=== PATIENT | female | born 1970 | race African-American/Black ===

== ENCOUNTER 2017-09-15 14:22 | Inpatient (IN) | payer OTHER ==
[2017-09-15] MEDS ORDERED: Acetaminophen 325 MG TAB PO PRN (15:56)
[2017-09-15] MEDS ORDERED: Guaifenesin DM 100-10/5 ML UDCUP PO PRN (15:56)
[2017-09-15] MEDS ORDERED: Ondansetron HCl/PF 4 MG/2 ML Vial IVP PRN (15:56)
[2017-09-15 16:27] LABS: CKMB 2.2 ng/mL (0-6.6); Troponin I 0.016 ng/mL (< 0.028)
[2017-09-15] MEDS ORDERED: Warfarin Sodium 5 MG TAB PO SCH (17:00)
--- NOTE | 2017-09-15 17:05 | HP ---
PRIMARY CARE PHYSICIAN: Dr. Beaulieu in [place]. REASON FOR ADMISSION: Atrial fibrillation with rapid ventricular response, acute on chronic congestive heart failure exacerbation, possible acute cholecystitis. HISTORY OF PRESENT ILLNESS: The patient gives history of nausea and vomiting from this morning. She went to [place] [facility] where a CT of the abdomen and pelvis was done along with urinalysis. Both the above tests revealed pleural and pericardial effusion with possible congestive heart failure exacerbation with elevated BNP and urinary tract infection. She also mentions that she has loss of appetite from last 3 weeks. She thinks she might have gallbladder issue. The patient initially thought this was constipation or GERD and tried taking multiple medications including Mylanta and antacids with no relief. She also has shortness of breath on minimal exertion while ambulating inside the house from last 3 weeks. No fever. No complaints of cough or expectoration. PAST MEDICAL/SURGICAL HISTORY: History of mitral valve replacement done in 1985 in [place], prior history of chronic atrial fibrillation, hypertension, hernia repair, tubal ligation, and hysterectomy. CURRENT MEDICATIONS: Please note, the patient does not recall all of her medications. She takes Coumadin 10 mg on all days except Friday and when she takes 5 mg daily, aspirin 81 mg daily, unknown blood pressure pill which she takes twice daily. ALLERGIES: MORPHINE and PENICILLIN. PERSONAL HISTORY: Does not abuse alcohol or drugs. No history of smoking. She lives with her fiance. FAMILY HISTORY: Mother of colon cancer when she was 49 years of age. Father had massive AL when he was 50. The patient has two girls. There are more than 20 years old. CODE STATUS: FULL. Power of disability attorney is either her fiance Mr. Taylor or her aunt Ms. Herrera. REVIEW OF SYSTEMS: The following complete review of systems was negative, unless otherwise mentioned in the HPI or below: Constitutional: Weight loss or gain, ability to conduct usual activities. Skin: Rash, itching. Eyes: Double vision, pain. ENT/Mouth: Nose bleeding, neck stiffness, pain, tenderness. Cardiovascular: Palpitations, dyspnea on exertion, orthopnea. Respiratory: Shortness of breath, wheezing, cough, hemoptysis, fever or night sweats. Gastrointestinal: Poor appetite, abdominal pain, heartburn, nausea, vomiting, constipation, or diarrhea. Genitourinary: Urgency, frequency, dysuria, nocturia. Musculoskeletal: Pain, swelling. Neurologic/Psychiatric: Anxiety, depression. Allergy/Immunologic: Skin rash, bleeding tendency. PHYSICAL EXAMINATION: GENERAL: The patient is a 46-year-old female, who is currently not in any acute distress. VITAL SIGNS: Blood pressure 120/104, pulse 110 per minute, respiratory rate 18 per minute, temperature 97.1 degrees Fahrenheit, saturating 97% on room air. NECK: Supple, no elevated JVD. HEENT: Eyes: Extraocular muscles intact. Pupils reacting to light. Oral cavity, mucous membranes are moist. No exudates or congestion. CARDIOVASCULAR: S1, S2 heard. Irregular rhythm. RESPIRATORY: Air entry 1+ bilateral. Scattered rales in the infrascapular area. ABDOMEN: Soft, bowel sounds heard. No tenderness, rigidity or guarding. EXTREMITIES: No peripheral edema or calf tenderness. VASCULAR SYSTEM: Peripheral pulses 1+ bilateral. No ischemic ulcerations or gangrene. CENTRAL NERVOUS SYSTEM: No gross focal deficits seen. The patient is alert, awake, and oriented well. PSYCHIATRIC: The patient's mood is euthymic. No hallucinations or delusions. LABORATORY AND X-RAY FINDINGS: EKG done shows atrial fibrillation with 107 beats per minute. There is nonspecific ST-T wave changes. CT of the abdomen and pelvis done at [place] [facility] shows bilateral pleural effusion and pericardial effusion. Prior echo done in 10/2016, showed an EF of 50%-55% with normal functioning prosthetic mitral valve. There is small pericardial effusion. White count of 7, H&H 11 and 38, platelet count 287 with 60% neutrophils. PT/ INR, PTT 18, 1.5, and 46. Serum bicarbonate 20, BUN 17, creatinine 0.8, glucose is 116. Total bilirubin 2.4. Liver enzymes are within normal limits. Albumin is 3.7. BNP 805. Lipase is 10. UA shows large leukoesterase with 7- 10 wbc's and 1+ bacteria. CLINICAL IMPRESSION AND PLAN: The patient will be admitted to telemetry for acute on chronic congestive heart failure exacerbation likely diastolic. She also has intractable nausea and vomiting from last 3 weeks, most likely from CHF with exertional shortness of breath. She has no right upper quadrant tenderness, but the patient thinks it could be gallbladder and in view of this, we will obtain ultrasound of the right upper quadrant. She will be on Lasix 40 mg IV q.[address] her on a small dose of Toprol 12.5 mg daily and continue her Coumadin at 5 mg daily. We will obtain echo with 2D Doppler for current ejection fraction. The plan is to gently diurese her to clear her severe orthopnea that she has at present. NEVAEHD
--- NOTE | 2017-09-15 17:45 | ULT ---
RIGHT UPPER QUADRANT SONOGRAM: HISTORY: Right upper quadrant pain. FINDINGS: The gallbladder is incompletely distended. A nonshadowing sludge ball is apparent within the gallbla dder lumen. There is no pericholecystic fluid or gallbladder wall thickening. The common duct is 0. 5 cm. The liver is heterogeneous without focal mass or intrahepatic biliary dilatation. No free flu id. Right pleural fluid is noted. IMPRESSION: Cholelithiasis. No evidence of acute biliary obstruction. POS: MARIELYH
[2017-09-15 19:11] LABS: Troponin I 0.026 ng/mL (< 0.028)
[2017-09-15] MEDS: Famotidine 20 MG TAB PO SCH (22:37)
[2017-09-15] MEDS: Docusate 100 MG CAP PO SCH (22:38)
[2017-09-16] MEDS: Furosemide 40 MG/4 ML VIAL SLOW IVP SCH ×2 (05:12→13:32)
[2017-09-16] MEDS ORDERED: Ondansetron ODT 4 MG TAB PO PRN (05:13)
[2017-09-16 05:23] LABS: INR-International Normal Ratio 1.8; Prothrombin Time 21.7 SEC (12.0-14.7)
[2017-09-16 05:34] LABS: Anion Gap 12 mmol/L (10-20); BUN (Urea Nitrogen) 18 mg/dL (7.0-18.7); Calc. Creatinine Clearance 119 mL/min (70-130); Calcium 8.9 mg/dL (7.8-10.44); Carbon Dioxide 21 mmol/L (22-29); Chloride 110 mmol/L (98-107); Estimated GFR-MDRD 77; Glucose 144 mg/dL (70-105); Potassium 4.1 mmol/L (3.5-5.1); Sodium 139 mmol/L (136-145)
[2017-09-16 05:48] LABS: Band 2 % (5-11); Eosinophils 3 % (0-10); Hemoglobin 11.8 g/dL (12.0-16.0); Lymphocytes 34 % (21-51); MDiff Complete? YES; Mean Corpuscular HGB CONC 30.2 g/dL (32.0-36.0); Mean Corpuscular Hemoglobin 20.7 pg (27.0-31.0); Mean Corpuscular Volume 68.4 fl (81.0-99.0); Monocytes 10 % (0-10); Neutrophil 51 % (42-75); PLT Morphology Comment Appears Adequate; Platelet Count 286 thou/uL (130-400); RBC Distribution Width 18.5 % (11.5-14.5); Red Blood Cell (RBC) Count 5.72 mill/uL (4.20-5.40); White Blood Cell (WBC) Count 8.8 thou/uL (4.8-10.8)
[2017-09-16] MEDS ORDERED: NIFEdipine XL 60 MG TAB PO PRN (07:41)
[2017-09-16] MEDS ORDERED: Nitroglycerin 0.4 MG TAB (25 Tab Bottle) SL PRN (07:41)
[2017-09-16] MEDS ORDERED: Dicyclomine 20 MG TAB PO PRN (07:41)
[2017-09-16] MEDS ORDERED: Losartan 25 MG TAB PO SCH (09:00)
[2017-09-16] MEDS: Docusate 100 MG CAP PO SCH ×2 (09:32→21:59)
[2017-09-16] MEDS: Famotidine 20 MG TAB PO SCH ×2 (09:32→21:58)
[2017-09-16] MEDS ORDERED: metroNIDAZOLE 500 MG TAB PO SCH (09:37)
--- NOTE | 2017-09-16 11:00 | PDOC.PN ---
- Subjective Encounter Start Date: 09/16/17 Encounter Start Time: 08:15 Subjective: c/o nausea no abd pain -: no chest pain or sob - Objective Resuscitation Status: Resuscitation Status FULL:Full Resuscitation MAR Reviewed: Yes Vital Signs & Weight: Vital Signs (12 hours) Temp Pulse Resp BP Pulse Ox 09/16/17 08:43 97.9 F 108 H 16 131/94 H 98 09/16/17 04:28 97.7 F 100 21 H 162/109 H 96 09/16/17 00:55 97.7 F 112 H 20 151/100 H 95 Weight Weight 219 lb 12.8 oz I&O: 09/15/17 09/16/17 09/17/17 06:59 06:59 06:59 Intake Total 800 Output Total 1050 1800 Balance -250 -1800 Result Diagrams: 09/16/17 05:06 09/16/17 04:57 Phys Exam - Physical Examination HEENT: PERRLA, moist MMs Neck: no JVD, supple Respiratory: no wheezing, no rales Cardiovascular: RRR, no significant murmur Gastrointestinal: soft, non-tender, positive bowel sounds Musculoskeletal: no edema, pulses present Neurological: non-focal, moves all 4 limbs Psychiatric: normal affect, A&O x 3 Dx/Plan (1) Acute exacerbation of CHF (congestive heart failure) Code(s): I50.9 - HEART FAILURE, UNSPECIFIED Status: Acute (2) H/O mitral valve repair Code(s): Z98.890 - OTHER SPECIFIED POSTPROCEDURAL STATES Status: Chronic Comment: [facility] valve since (done at [place]) (3) HTN (hypertension) Code(s): I10 - ESSENTIAL (PRIMARY) HYPERTENSION Status: Chronic Qualifiers: Hypertension type: essential hypertension Qualified Code(s): I10 - Essential (primary) hypertension (4) Obesity (BMI 30-39.9) Code(s): E66.9 - OBESITY, UNSPECIFIED Status: Chronic (5) Nausea & vomiting Code(s): R11.2 - NAUSEA WITH VOMITING, UNSPECIFIED Status: Acute Qualifiers: Vomiting type: unspecified (6) Trichomonas vaginalis infection Code(s): A59.9 - TRICHOMONIASIS, UNSPECIFIED Status: Acute - Plan is on lasix, diuresing well -: one dose of flagyl 2g for trich vag infection -: continue coumadin, asp, toprol xl, procardia xl, and add cozaar -: usg liver shows sludge with no obstruction in gall bladder, no intervention -: trop x3 is -ve, await echo, cardio consult * . Review of Systems - Medications/Allergies Allergies/Adverse Reactions: Allergies Allergy/AdvReac Type Severity Reaction Status Date / Time morphine Allergy Verified 09/15/17 18:15 Penicillins Allergy Verified 09/15/17 18:15 Medications: Current Medications Acetaminophen (Tylenol) 650 mg PO Q4H PRN PRN Reason: Headache/Fever or Pain Aspirin (Aspirin Chewable) 81 mg PO DAILY [facility] Last Admin: 09/16/17 09:32 Dose: 81 mg Dicyclomine HCl (Bentyl) 20 mg PO QIDPRN PRN PRN Reason: Diarrhea/Loose Stools Docusate Sodium (Colace) 100 mg PO BID [facility] Last Admin: 09/16/17 09:32 Dose: 100 mg Famotidine (Pepcid) 20 mg PO BID [facility] Last Admin: 09/16/17 09:32 Dose: 20 mg Furosemide (Lasix) 40 mg SLOW IVP 0600,1400 [facility] Last Admin: 09/16/17 05:12 Dose: 40 mg Guaifenesin/Dextromethorphan (Robitussin Dm) 15 ml PO Q4H PRN PRN Reason: Cough Losartan Potassium (Cozaar) 25 mg PO DAILY [facility] Last Admin: 09/16/17 09:32 Dose: 25 mg Metoprolol Succinate (Toprol Xl) 12.5 mg PO DAILY [facility] Last Admin: 09/16/17 05:09 Dose: 12.5 mg Metronidazole (Flagyl) 2,000 mg PO NOW [facility] Stop: 09/16/17 11:00 Nifedipine (Procardia Xl) 60 mg PO DAILYPRN PRN PRN Reason: Hypertension Nitroglycerin (Nitrostat) 0.4 mg SL Q5MIN PRN PRN Reason: Chest Pain Ondansetron HCl (Zofran Odt) 4 mg PO Q6H PRN PRN Reason: Nausea/Vomiting Last Admin: 09/16/17 06:00 Dose: 4 mg Sodium Chloride (Flush - Normal Saline) 10 ml IVF Q12HR [facility] Last Admin: 09/16/17 09:32 Dose: 10 ml Sodium Chloride (Flush - Normal Saline) 10 ml IVF PRN PRN PRN Reason: Saline Flush Warfarin Sodium (Coumadin) 5 mg PO 1700 [facility] Last Admin: 09/15/17 17:57 Dose: 5 mg
[2017-09-16] MEDS ORDERED: Warfarin Sodium 5 MG TAB PO SCH (12:49)
[2017-09-16] MEDS ORDERED: Heparin 10,000 UNITS/ 10 ML VIAL SLOW IVP SCH (13:15)
[2017-09-16] MEDS ORDERED: Heparin 25,000 units/D5W 500 ML IV SCH (13:15)
[2017-09-16] MEDS ORDERED: Sodium Chloride 0.9% 10 ML ONE (13:39)
--- NOTE | 2017-09-16 14:37 | CON ---
DATE OF CONSULTATION: 09/16/2017 HISTORY OF PRESENT ILLNESS: Patient is a 46-year-old woman with a history of mitral valve replacement, who presents with abdominal discomfort. The patient underwent mitral valve replacement in 1985. She has been in chronic atrial fibrillation. She has been on warfarin therapy. The patient was in her usual state of health until recently. She presented with abdominal discomfort. She has been coughing for several days. The patient denies having any chest pain. She reports feeling mildly dyspneic. PAST MEDICAL HISTORY: 1. Mitral valve replacement. 2. Atrial fibrillation. 3. Hypertension. 4. Hernia repair. PAST SURGICAL HISTORY: Mitral valve replacement ,hysterectomy, tubal ligation, hernia surgery. SOCIAL HISTORY: Nonsmoker. MEDICATIONS ON ADMISSION: Warfarin 10 mg daily, except 5 mg Tuesdays and ; metoprolol 25 XL daily; nifedipine 60 XL daily p.r.n.; Bentyl 20 mg q.i.d. p.r.n., a baby aspirin tablet daily; Protonix 40 daily; and spironolactone/HCTZ 25-25 daily. REVIEW OF SYSTEMS: Ten-point system otherwise unremarkable. PHYSICAL EXAMINATION: GENERAL: This is an obese woman in no acute distress. VITAL SIGNS: Blood pressure 159/96 and heart rate is 101 and irregular. NECK: Showed no jugular venous distention. LUNGS: Clear to auscultation. HEART: Irregular rate and rhythm. Normal S1 and S2 with a 1/6 systolic murmur. ABDOMEN: Nondistended. EXTREMITIES: Showed no edema. LABORATORY RESULTS: Showed her to have a sodium of 139, potassium 4.1, chloride 110, bicarbonate 21, BUN 18, creatinine is 0.95, glucose is 144. White blood cell count 8.8, hemoglobin 11.8, hematocrit 39.1, and her platelets are 286. INR was 1.8. Her EKG revealed atrial fibrillation with a rapid ventricular response and a nonspecific T-wave abnormality. IMPRESSION: 1. Abdominal discomfort. 2. Rapid atrial fibrillation. 3. History of mitral valve replacement. 4. Hypertension. 5. Morbid obesity. This patient presents with abdominal discomfort. From a cardiac standpoint, she is subtherapeutic on her anticoagulation. We will start the patient on heparin. We will increase the dose of her Coumadin. We will follow this patient with you through her hospitalization. [facility]
[2017-09-16] MEDS: Warfarin Sodium 10 MG TAB PO SCH (16:19)
[2017-09-16] MEDS: Lisinopril 5 MG TAB PO SCH (21:58)
[2017-09-17 03:54] LABS: INR-International Normal Ratio 2.1; Prothrombin Time 24.6 SEC (12.0-14.7)
[2017-09-17 05:07] LABS: PTT 136.9 SEC (22.9-36.1)
[2017-09-17] MEDS: Furosemide 40 MG/4 ML VIAL SLOW IVP SCH (05:10)
[2017-09-17] MEDS: Spironolactone 25 MG TAB PO SCH (08:36)
[2017-09-17] MEDS: Lisinopril 5 MG TAB PO SCH ×2 (08:37→21:27)
[2017-09-17] MEDS: Famotidine 20 MG TAB PO SCH ×2 (08:37→21:26)
[2017-09-17] MEDS: Docusate 100 MG CAP PO SCH ×2 (08:47→21:26)
--- NOTE | 2017-09-17 11:39 | PDOC.PN ---
- Subjective Encounter Start Date: 09/17/17 Encounter Start Time: 08:15 Subjective: sob is better, no nausea or abd pain - Objective Resuscitation Status: Resuscitation Status FULL:Full Resuscitation MAR Reviewed: Yes Vital Signs & Weight: Vital Signs (12 hours) Temp Pulse Resp BP Pulse Ox 09/17/17 08:21 97.7 F 98 18 09/17/17 08:10 97.7 F 98 18 103/61 97 09/17/17 04:46 97.7 F 77 16 115/77 931 H 09/17/17 00:29 97.9 F 105 H 18 161/99 H 98 Weight Admit Weight 221 lb 11.2 oz Weight 214 lb 9.6 oz I&O: 09/16/17 09/17/17 09/18/17 06:59 06:59 06:59 Intake Total 800 1841.2 Output Total 1050 2950 Balance -250 -1108.8 Result Diagrams: 09/16/17 05:06 09/16/17 04:57 Phys Exam - Physical Examination HEENT: PERRLA, moist MMs Neck: no JVD, supple Respiratory: no wheezing, no rhonchi basal rales+ Cardiovascular: RRR, no significant murmur Gastrointestinal: soft, non-tender, positive bowel sounds Musculoskeletal: no edema, pulses present Neurological: non-focal, moves all 4 limbs Psychiatric: A&O x 3 Dx/Plan (1) Acute exacerbation of CHF (congestive heart failure) Code(s): I50.9 - HEART FAILURE, UNSPECIFIED Status: Acute Qualifiers: Heart failure type: systolic Qualified Code(s): I50.23 - Acute on chronic systolic (congestive) heart failure Comment: ef of 35% (2) H/O mitral valve repair Code(s): Z98.890 - OTHER SPECIFIED POSTPROCEDURAL STATES Status: Chronic Comment: [facility] valve since (done at [place]) (3) HTN (hypertension) Code(s): I10 - ESSENTIAL (PRIMARY) HYPERTENSION Status: Chronic Qualifiers: Hypertension type: essential hypertension Qualified Code(s): I10 - Essential (primary) hypertension (4) Obesity (BMI 30-39.9) Code(s): E66.9 - OBESITY, UNSPECIFIED Status: Chronic (5) Nausea & vomiting Code(s): R11.2 - NAUSEA WITH VOMITING, UNSPECIFIED Status: Resolved Qualifiers: Vomiting type: unspecified (6) Trichomonas vaginalis infection Code(s): A59.9 - TRICHOMONIASIS, UNSPECIFIED Status: Acute Comment: treated with full dose flagyl x1 - Plan gentle diuresis -: on lasix 40mg iv q12h -: heparin bridge with coumadin, inr is 2.1 -: toprol, spironolactone and lisinopril -: to amb as tolerated * . Review of Systems - Medications/Allergies Allergies/Adverse Reactions: Allergies Allergy/AdvReac Type Severity Reaction Status Date / Time morphine Allergy Verified 09/15/17 18:15 Penicillins Allergy Verified 09/15/17 18:15 Medications: Current Medications Acetaminophen (Tylenol) 650 mg PO Q4H PRN PRN Reason: Headache/Fever or Pain Aspirin (Aspirin Chewable) 81 mg PO DAILY [facility] Last Admin: 09/17/17 08:37 Dose: 81 mg Dicyclomine HCl (Bentyl) 20 mg PO QIDPRN PRN PRN Reason: Diarrhea/Loose Stools Docusate Sodium (Colace) 100 mg PO BID [facility] Last Admin: 09/17/17 08:47 Dose: Not Given Famotidine (Pepcid) 20 mg PO BID [facility] Last Admin: 09/17/17 08:37 Dose: 20 mg Guaifenesin/Dextromethorphan (Robitussin Dm) 15 ml PO Q4H PRN PRN Reason: Cough Heparin Sodium (Porcine) (Heparin 1,000 Units/Ml (10 Ml)) 0 units SLOW IVP [place] [facility] Last Admin: 09/16/17 13:42 Dose: 4 ml Heparin Sodium/Dextrose (Heparin 25,000 Units/D5w 500 Ml) 500 mls @ 0 mls/hr IV INF [facility]; As Directed PRN Reason: Protocol Last Admin: 09/16/17 13:46 Dose: 500 mls Lisinopril (Zestril) 5 mg PO BID [facility] Last Admin: 09/17/17 08:37 Dose: 5 mg Metoprolol Succinate (Toprol Xl) 50 mg PO BID [facility] Last Admin: 09/17/17 08:36 Dose: 50 mg Nitroglycerin (Nitrostat) 0.4 mg SL Q5MIN PRN PRN Reason: Chest Pain Ondansetron HCl (Zofran Odt) 4 mg PO Q6H PRN PRN Reason: Nausea/Vomiting Last Admin: 09/16/17 06:00 Dose: 4 mg Sodium Chloride (Flush - Normal Saline) 10 ml IVF Q12HR [facility] Last Admin: 09/17/17 08:37 Dose: 10 ml Sodium Chloride (Flush - Normal Saline) 10 ml IVF PRN PRN PRN Reason: Saline Flush Spironolactone (Aldactone) 25 mg PO QAM-WM [facility] Last Admin: 09/17/17 08:36 Dose: 25 mg Warfarin Sodium (Coumadin) 10 mg PO 1700 [facility] Last Admin: 09/16/17 16:19 Dose: 10 mg
[2017-09-17] MEDS ORDERED: Bisacodyl 10 MG SUPP PR PRN (11:41)
[2017-09-17] MEDS ORDERED: Magnesium Citrate 300 ML BOT PO SCH (11:45)
[2017-09-17] MEDS: Warfarin Sodium 10 MG TAB PO SCH (16:38)
[2017-09-18 05:13] LABS: INR-International Normal Ratio 2.4; Prothrombin Time 26.9 SEC (12.0-14.7)
[2017-09-18 05:19] LABS: PTT 214.4 SEC (22.9-36.1)
[2017-09-18 06:58] LABS: INR-International Normal Ratio 2.3; Prothrombin Time 26.5 SEC (12.0-14.7)
[2017-09-18 06:59] LABS: PTT 77.4 SEC (22.9-36.1)
[2017-09-18] MEDS: Docusate 100 MG CAP PO SCH ×2 (09:20→20:51)
[2017-09-18] MEDS: Furosemide 40 MG TAB PO SCH (09:20)
[2017-09-18] MEDS: Famotidine 20 MG TAB PO SCH ×2 (09:20→20:53)
[2017-09-18] MEDS: Spironolactone 25 MG TAB PO SCH (09:20)
[2017-09-18] MEDS: Lisinopril 5 MG TAB PO SCH ×2 (09:20→20:53)
[2017-09-18] MEDS: Heparin 25,000 units/D5W 500 ML IV SCH ×2 (09:33→17:59)
--- NOTE | 2017-09-18 10:30 | PDOC.PN ---
- Subjective Encounter Start Date: 09/18/17 Encounter Start Time: 09:00 Subjective: no sob or chest pain - Objective Resuscitation Status: Resuscitation Status FULL:Full Resuscitation MAR Reviewed: Yes Vital Signs & Weight: Vital Signs (12 hours) Temp Pulse Resp BP Pulse Ox 09/18/17 08:02 98.3 F 79 19 117/81 95 09/18/17 04:00 97.9 F 77 16 123/66 95 09/18/17 00:00 97.8 F 77 16 119/82 94 L Weight Admit Weight 221 lb 11.2 oz Weight 214 lb 14.4 oz I&O: 09/17/17 09/18/17 09/19/17 06:59 06:59 06:59 Intake Total 1841.2 1060 Output Total 2950 1900 Balance -1108.8 -840 Result Diagrams: 09/16/17 05:06 09/16/17 04:57 Phys Exam - Physical Examination HEENT: PERRLA, moist MMs Neck: no JVD, supple Respiratory: no wheezing, no rales Cardiovascular: RRR, no significant murmur Gastrointestinal: soft, non-tender, positive bowel sounds Musculoskeletal: no edema, pulses present Neurological: non-focal, moves all 4 limbs Psychiatric: A&O x 3 Dx/Plan (1) Acute exacerbation of CHF (congestive heart failure) Code(s): I50.9 - HEART FAILURE, UNSPECIFIED Status: Acute Qualifiers: Heart failure type: systolic Qualified Code(s): I50.23 - Acute on chronic systolic (congestive) heart failure Comment: ef of 35% (2) H/O mitral valve repair Code(s): Z98.890 - OTHER SPECIFIED POSTPROCEDURAL STATES Status: Chronic Comment: [facility] valve since (done at [place]) (3) HTN (hypertension) Code(s): I10 - ESSENTIAL (PRIMARY) HYPERTENSION Status: Chronic Qualifiers: Hypertension type: essential hypertension Qualified Code(s): I10 - Essential (primary) hypertension (4) Obesity (BMI 30-39.9) Code(s): E66.9 - OBESITY, UNSPECIFIED Status: Chronic (5) Nausea & vomiting Code(s): R11.2 - NAUSEA WITH VOMITING, UNSPECIFIED Status: Resolved Qualifiers: Vomiting type: unspecified (6) Trichomonas vaginalis infection Code(s): A59.9 - TRICHOMONIASIS, UNSPECIFIED Status: Acute Comment: treated with full dose flagyl x1 - Plan is back on heparin per to get inr over 3 -: is on her home dose of coumadin, inr around 2.4 -: oral lasix daily -: meds are being optimized for her chf -: is amb and eating better now, dc plan per cardio advice * . Review of Systems - Medications/Allergies Allergies/Adverse Reactions: Allergies Allergy/AdvReac Type Severity Reaction Status Date / Time morphine Allergy Verified 09/15/17 18:15 Penicillins Allergy Verified 09/15/17 18:15 Medications: Current Medications Acetaminophen (Tylenol) 650 mg PO Q4H PRN PRN Reason: Headache/Fever or Pain Aspirin (Aspirin Chewable) 81 mg PO DAILY [facility] Last Admin: 09/18/17 09:20 Dose: 81 mg Bisacodyl (Dulcolax) 10 mg GA Q8H PRN PRN Reason: Constipation Last Admin: 09/17/17 14:24 Dose: 10 mg Dicyclomine HCl (Bentyl) 20 mg PO QIDPRN PRN PRN Reason: Diarrhea/Loose Stools Docusate Sodium (Colace) 100 mg PO BID [facility] Last Admin: 09/18/17 09:20 Dose: Not Given Famotidine (Pepcid) 20 mg PO BID [facility] Last Admin: 09/18/17 09:20 Dose: 20 mg Furosemide (Lasix) 40 mg PO DAILY[facility] Last Admin: 09/18/17 09:20 Dose: 40 mg Guaifenesin/Dextromethorphan (Robitussin Dm) 15 ml PO Q4H PRN PRN Reason: Cough Heparin Sodium/Dextrose (Heparin 25,000 Units/D5w 500 Ml) 500 mls @ 0 mls/hr IV INF [facility]; As Directed PRN Reason: Protocol Last Admin: 09/18/17 09:33 Dose: 500 mls Lisinopril (Zestril) 5 mg PO BID [facility] Last Admin: 09/18/17 09:20 Dose: 5 mg Metoprolol Succinate (Toprol Xl) 75 mg PO BID [facility] Last Admin: 09/18/17 09:19 Dose: 75 mg Metoprolol Succinate (Toprol Xl) 25 mg PO ONE [facility] Stop: 09/18/17 11:00 Nitroglycerin (Nitrostat) 0.4 mg SL Q5MIN PRN PRN Reason: Chest Pain Ondansetron HCl (Zofran Odt) 4 mg PO Q6H PRN PRN Reason: Nausea/Vomiting Last Admin: 09/16/17 06:00 Dose: 4 mg Sodium Chloride (Flush - Normal Saline) 10 ml IVF Q12HR [facility] Last Admin: 09/18/17 09:32 Dose: 10 ml Sodium Chloride (Flush - Normal Saline) 10 ml IVF PRN PRN PRN Reason: Saline Flush Spironolactone (Aldactone) 25 mg PO QAM-WM [facility] Last Admin: 09/18/17 09:20 Dose: 25 mg Warfarin Sodium (Coumadin) 10 mg PO 1700 [facility] Last Admin: 09/17/17 16:38 Dose: 10 mg
[2017-09-18 10:40] LABS: Anion Gap 13 mmol/L (10-20); BUN (Urea Nitrogen) 21 mg/dL (7.0-18.7); Calc. Creatinine Clearance 128 mL/min (70-130); Calcium 9.2 mg/dL (7.8-10.44); Carbon Dioxide 27 mmol/L (22-29); Chloride 102 mmol/L (98-107); Estimated GFR-MDRD 87; Glucose 123 mg/dL (70-105); Potassium 3.6 mmol/L (3.5-5.1); Sodium 138 mmol/L (136-145)
[2017-09-18] MEDS ORDERED: Warfarin Sodium 10 MG TAB PO SCH (10:45)
[2017-09-18 13:01] LABS: INR-International Normal Ratio 2.2; Prothrombin Time 24.9 SEC (12.0-14.7)
[2017-09-18 13:04] LABS: PTT 116.6 SEC (22.9-36.1)
[2017-09-18 14:01] VITALS: BMI 38.0
[2017-09-18] MEDS: Warfarin Sodium 10 MG TAB PO SCH (17:32)
[2017-09-18 22:44] LABS: INR-International Normal Ratio 2.8; Prothrombin Time 30.7 SEC (12.0-14.7)
[2017-09-19 06:40] LABS: INR-International Normal Ratio 3.1; PTT 65.9 SEC (22.9-36.1); Prothrombin Time 33.1 SEC (12.0-14.7)
[2017-09-19 06:55] LABS: Anion Gap 13 mmol/L (10-20); BUN (Urea Nitrogen) 21 mg/dL (7.0-18.7); Calc. Creatinine Clearance 148 mL/min (70-130); Calcium 8.7 mg/dL (7.8-10.44); Carbon Dioxide 25 mmol/L (22-29); Chloride 103 mmol/L (98-107); Estimated GFR-MDRD Greater than 90; Glucose 91 mg/dL (70-105); Potassium 3.8 mmol/L (3.5-5.1); Sodium 137 mmol/L (136-145)
[2017-09-19 07:56] VITALS: TEMP 97.6
[2017-09-19] MEDS: Spironolactone 25 MG TAB PO SCH (07:57)
[2017-09-19] MEDS: Furosemide 40 MG TAB PO SCH (07:57)
[2017-09-19] MEDS: Lisinopril 5 MG TAB PO SCH (07:58)
[2017-09-19] MEDS: Famotidine 20 MG TAB PO SCH (07:58)
[2017-09-19] MEDS: Docusate 100 MG CAP PO SCH (07:59)
[2017-09-19] MEDS ORDERED: Furosemide 20 MG TAB PO SCH (08:26)
[2017-09-19] MEDS ORDERED: Lisinopril 10 MG TAB PO SCH ×2 (08:27→21:00)
[2017-09-19] MEDS ORDERED: Lisinopril 5 MG TAB PO SCH (09:00)
[2017-09-19 11:38] VITALS: BP 124/98
--- NOTE | 2017-09-19 17:36 | PDOC.PN ---
- Subjective Encounter Start Date: 09/19/17 Encounter Start Time: 09:00 Subjective: breathing better, no nausea or chest pain - Objective Resuscitation Status: Resuscitation Status FULL:Full Resuscitation MAR Reviewed: Yes Vital Signs & Weight: Vital Signs (12 hours) Temp Pulse Resp BP BP Pulse Ox 09/19/17 11:35 72 18 124/98 H 99 09/19/17 07:58 66 09/19/17 07:50 97.6 F 66 18 133/95 H 98 Weight Admit Weight 221 lb 11.2 oz Weight 216 lb I&O: 09/18/17 09/19/17 09/20/17 06:59 06:59 06:59 Intake Total 1060 1292 Output Total 1900 1450 Balance -840 -158 Result Diagrams: 09/16/17 05:06 09/19/17 06:09 Phys Exam - Physical Examination HEENT: PERRLA, moist MMs Neck: no JVD, supple Respiratory: no wheezing, no rales Cardiovascular: RRR, no significant murmur Gastrointestinal: soft, non-tender, positive bowel sounds Musculoskeletal: no edema, pulses present Neurological: non-focal, moves all 4 limbs Dx/Plan (1) Acute exacerbation of CHF (congestive heart failure) Code(s): I50.9 - HEART FAILURE, UNSPECIFIED Status: Acute Qualifiers: Heart failure type: systolic Qualified Code(s): I50.23 - Acute on chronic systolic (congestive) heart failure Comment: ef of 35% (2) H/O mitral valve repair Code(s): Z98.890 - OTHER SPECIFIED POSTPROCEDURAL STATES Status: Chronic Comment: [facility] valve since (done at [place]) (3) HTN (hypertension) Code(s): I10 - ESSENTIAL (PRIMARY) HYPERTENSION Status: Chronic Qualifiers: Hypertension type: essential hypertension Qualified Code(s): I10 - Essential (primary) hypertension (4) Obesity (BMI 30-39.9) Code(s): E66.9 - OBESITY, UNSPECIFIED Status: Chronic (5) Nausea & vomiting Code(s): R11.2 - NAUSEA WITH VOMITING, UNSPECIFIED Status: Resolved Qualifiers: Vomiting type: unspecified (6) Trichomonas vaginalis infection Code(s): A59.9 - TRICHOMONIASIS, UNSPECIFIED Status: Acute Comment: treated with full dose flagyl x1 - Plan hemostable -: meds optimized for her chf -: is off heparin, inr is therapeutic -: dc pt home * . Review of Systems - Medications/Allergies Allergies/Adverse Reactions: Allergies Allergy/AdvReac Type Severity Reaction Status Date / Time morphine Allergy Verified 09/15/17 18:15 Penicillins Allergy Verified 09/15/17 18:15
--- NOTE | 2017-09-20 00:40 | DIS ---
DATE OF ADMISSION: 09/15/2017 DATE OF DISCHARGE: 09/19/2017 DISCHARGE DISPOSITION: To home. PRIMARY DISCHARGE DIAGNOSES: Acute exacerbation of congestive heart failure with systolic dysfunction with an ejection fraction of 35%; history of mechanical mitral valve; hypertension; obesity; nausea; vomiting on arrival; resolved, Trichomonas vaginalis infection, resolved. PROCEDURES DONE DURING HOSPITALIZATION: Abdominal ultrasound done on the day of admission showed cholelithiasis with no evidence of acute biliary obstruction. Echo with 2D Doppler done showed an EF of 30%-35%, left atrium was severely dilated. Moderate enlargement of right atrium, mechanical prosthetic valve was present, moderate tricuspid regurgitation. H and H 11 and 39, and platelet count 286. INR on the day of discharge is 3.1. Troponin x2 is negative. Had a BNP of 805.[address] of the abdomen and pelvis done on the day of admission showed bilateral pleural effusion with pericardial effusion as well. DISCHARGE MEDICATIONS: Aspirin 81 mg p.o. daily, Bentyl p.r.n., Lasix 20 mg daily, lisinopril 10 mg twice daily, Toprol-XL 75 mg twice daily, spironolactone 25 mg daily, Coumadin 10 mg daily, and to alternate as before. ALLERGIES: Allergic to MORPHINE and PENICILLIN. INPATIENT CONSULTS: Dr. Guzman for Cardiology. BRIEF COURSE DURING HOSPITALIZATION: The patient initially got admitted on the with complaints of nausea, vomiting, and shortness of breath. She was found to be in acute on chronic CHF exacerbation. The patient also had chronic atrial fibrillation with RVR on arrival. Her atrial fibrillation got rate controlled quickly. She was gently diuresed during her stay here. The patient' s INR was sub therapeutic and was placed on heparin bridge. The patient's initial CAT scan revealed possible cholelithiasis and hence the right upper quadrant ultrasound was obtained. This did not reveal any signs of acute cholecystitis. Her medications were optimized for her systolic heart failure with mechanical mitral valve as well. She has remained hemodynamically stable, ambulating and eating well prior to discharge. The patient needs to get INR check on Friday. Please see a face to face documentation on [employer] for the day of discharge. [facility]
== END 2017-09-19 14:01 | disposition home or self-care (01) | DRG 293 ==
LOC: ERS 14:22 → 2NO 15:42
PROVIDERS: ADMIT Internal Medicine; ATTEND Internal Medicine
DX: I11.0 Hypertensive heart disease with heart failure (principal); E66.01 Morbid (severe) obesity due to excess calories; Z95.2 Presence of prosthetic heart valve; Z79.01 Long term (current) use of anticoagulants; I48.2 Chronic atrial fibrillation; A59.01 Trichomonal vulvovaginitis; Z79.82 Long term (current) use of aspirin; I50.23 Acute on chronic systolic (congestive) heart failure; Z88.0 Allergy status to penicillin; Z90.710 Acquired absence of both cervix and uterus; Z88.5 Allergy status to narcotic agent
CPT/HCPCS: 36415; 76705; 80048; 85025; 85610; 85730; 93005; 93306; 93798; A4216; J1644; J1940; Q0162

== ENCOUNTER 2018-10-23 13:55 | Outpatient (CLI) | payer OTHER ==
--- NOTE | 2018-10-23 14:17 | MMO ---
Bilateral MAMMO Bilat Screen DDI. CLINICAL HISTORY: Patient is 47 years old and is seen for screening. The patient has no family history of breast cancer. The patient has no personal history of cancer. VIEWS: The views performed were: bilateral craniocaudal and bilateral mediolateral oblique. FILMS COMPARED: The present examination has been compared to prior imaging studies performed at [facility] on 06/28/2015 and 03/06/2017. This study has been interpreted with the assistance of computer-aided detection. MAMMOGRAM FINDINGS: The breasts are heterogeneously dense, which could obscure a lesion on mammography. There are benign appearing calcifications seen in both breasts. There are no suspicious masses, suspicious calcifications, or new areas of architectural distortion. IMPRESSION: THERE IS NO MAMMOGRAPHIC EVIDENCE OF MALIGNANCY. A ROUTINE FOLLOW-UP MAMMOGRAM IN 1 YEAR IS RECOMMENDED. ACR BI-RADS Category 2 - Benign finding MAMMOGRAPHY NOTE: 1. A negative mammogram report should not delay a biopsy if a dominant of clinically suspicious mass is present. 2. Approximately 10% to 15% of breast cancers are not detected by mammography. 3. Adenosis and dense breasts may obscure an underlying neoplasm.
== END 2018-10-23 13:56 | disposition home or self-care (01) ==
LOC: SCSMAMMO 13:55
PROVIDERS: ATTEND Nurse Practitioner Family
DX: Z12.31 Encounter for screening mammogram for malignant neoplasm of breast (principal)
CPT/HCPCS: 77067

== ENCOUNTER 2018-11-13 16:04 | Inpatient (IN) | payer OTHER ==
[~2018-11-13 16:04] MED LIST: ISOVUE-370 76%-LOCM 1 ML ONE
[2018-11-13] MEDS ORDERED: Acetaminophen 500 MG TAB ONE (18:33)
[2018-11-13] MEDS ORDERED: Labetalol HCl 100 MG/20 ML VIAL ONE (18:33)
[2018-11-13] MEDS ORDERED: Lorazepam 2 MG/ML VIAL ONE (19:19)
--- NOTE | 2018-11-13 19:35 | CT ---
CTA Angio Chest W WO Con History: Chest pain Comparison: Chest radiograph 11/13/2018 Findings: CT angiogram chest performed after the intravenous administration of contrast. 3-D renderin g provided. Pulmonary trunk measures 3 cm, abnormally dilated. There is no proximal segmental pulmonary arterial filling defect. Heart size is markedly enlarged. Mitral valve replacement. Incomplete contrast filling of the left at rial appendage. Reflux of contrast within the suprahepatic IVC and the hepatic veins. Moderate effusions. Mild pulmonary edema. Impression: 1. No pulmonary embolism. 2. Moderate effusions as well as mild edema and cardiomegaly indicating congestive heart failure. 3. Mild dilatation pulmonary trunk can be seen with early pulmonary arterial hypertension. 4. No significant contrast within left atrial appendage may be sequelae of admixing or a filling defe ct.
[2018-11-13 20:30] LABS: ALT (SGPT) 19 U/L (8-55); AST (SGOT) 30 U/L (5-34); Albumin 4.1 g/dL (3.5-5.0); Alkaline Phosphatase 109 U/L (40-150); Anion Gap 14 mmol/L (10-20); BUN (Urea Nitrogen) 15 mg/dL (7.0-18.7); Bilirubin, Total 2.3 mg/dL (0.2-1.2); Calc. Creatinine Clearance 0 mL/min (70-130); Calcium 9.3 mg/dL (7.8-10.44); Carbon Dioxide 25 mmol/L (22-29); Chloride 104 mmol/L (98-107); Estimated GFR-MDRD Greater than 90; Globulin 3.2 g/dL (2.4-3.5); Glucose 94 mg/dL (70-105); Magnesium 1.9 mg/dL (1.6-2.6); Potassium 3.6 mmol/L (3.5-5.1); Protein, Total 7.3 g/dL (6.0-8.3); Sodium 139 mmol/L (136-145)
[2018-11-13] MEDS ORDERED: Nitroglycerin 0.4 MG TAB (25 Tab Bottle) PO PRN (21:37)
[2018-11-13] MEDS ORDERED: Ondansetron ODT 4 MG TAB PO PRN (21:43)
[2018-11-13] MEDS ORDERED: Acetaminophen 325 MG TAB PO PRN (21:43)
[2018-11-13] MEDS ORDERED: Calcium Carbonate 500 MG ChewTAB PO PRN (21:43)
[2018-11-13] MEDS ORDERED: Lisinopril 5 MG TAB PO SCH (21:45)
[2018-11-13] MEDS ORDERED: Carvedilol 6.25 MG TAB PO SCH (21:45)
[2018-11-13] MEDS ORDERED: cloNIDine 0.1 MG TAB PO PRN (22:09)
[2018-11-13 22:10] LABS: Prothrombin Time 22.5 SEC (12.0-14.7)
--- NOTE | 2018-11-13 22:14 | HP ---
PRIMARY CARE PHYSICIAN: [facility]. PRIMARY POLISHER DIAL: Wilfred Guzman MD. CHIEF COMPLAINT: Shortness of breath. HISTORY OF PRESENT ILLNESS: The patient is a 47-year-old female with chronic systolic heart failure ejection fraction 35% range, hypertension, and mitral valve replacement in the past on chronic anticoagulation, presented to the emergency room with above complaints. The patient initially presented to [facility] and was transferred to this facility. Over the last 1 week or so, the patient developed gradual worsening shortness of breath along with lower extremity swelling. She was short of breath on minimal exertion. She also noticed increased abdominal distention. Shortness of breath was getting worse on lying down as well. She denies any chest pain, palpitations, or syncope. No diaphoresis, nausea, vomiting reported. She is not compliant with fluid restriction. Over the last 1 or 2 months, she is out of Lasix and lisinopril. Her INR last month was 5.0. Her Coumadin dose was recently reduced to 10 mg every day except for 5 mg on Tuesdays, , and Friday. She denies any hematemesis, melena, hematochezia, or recent fall. In the emergency room at [place], her initial vital signs showed respirations of 24 with pulse rate of 126, blood pressure of 160/129 with O2 saturation of 95% on room air. She received 40 mg IV Lasix, Lopressor, Zofran and fentanyl and was transferred to this facility. EKG showed atrial fibrillation with rapid ventricular response. PAST MEDICAL HISTORY: 1. Chronic atrial fibrillation. 2. History of mitral valve replacement in 1985, on anticoagulation. 3. Chronic systolic heart failure, ejection fraction 30% to 35% in the past. 4. Hypertension. 5. Medication noncompliance. PAST SURGICAL HISTORY: 1. Hernia repair. 2. Mitral valve replacement. 3. Tubal ligation. 4. Hysterectomy. ALLERGIES: THE PATIENT IS ALLERGIC TO MORPHINE AND PENICILLIN. CURRENT HOME MEDICATIONS: The patient is unable to recall all of her home medications. She only remembers the Coumadin dosing. She is unable to recall any other medications. She states that she is out of lisinopril and Lasix for last 1 to 2 months. SOCIAL HISTORY: The patient currently lives at home with her family. She denies any current use of tobacco, alcohol, or drug use. FAMILY HISTORY: Mother of colon cancer at the age of 47. Father had a massive DE at the age of 50. REVIEW OF SYSTEMS: All other review of systems was reviewed and were found negative. PHYSICAL EXAMINATION: VITAL SIGNS: As discussed above. GENERAL: A 47-year-old female in mild respiratory distress. Able to complete short phrases. HEENT: Head, atraumatic and normocephalic. Sclerae anicteric. Moist mucous membranes. No oral lesion. Poor dental hygiene. NECK: Supple. No carotid bruit. JVD elevated. LUNGS: Showed bibasilar rales with diminished air entry at bases. Scattered rhonchi. No wheezing. HEART: S1, S2 present. Irregularly irregular. No rubs or gallops appreciated. ABDOMEN: Soft, mild generalized tenderness mainly in the lower quadrant. No rebound or guarding. No costovertebral angle tenderness. EXTREMITIES: 2+ edema in bilateral lower extremities. SKIN: Warm and dry. LYMPH NODES: No palpable lymph nodes in the neck. PERIPHERAL VASCULAR: Radial pulse is palpable bilaterally. MUSCULOSKELETAL: No joint swelling or tenderness. LABORATORY FINDINGS: INR 2.3. BNP was 1120. Troponin negative. Total bilirubin 2.3. WBC 8.4 with hemoglobin 10.8. Urinalysis was negative for wbc or bacteria. BUN 15, creatinine 0.8, sodium 139, potassium 3.6. EKG by my review showed atrial fibrillation with rapid ventricular response with nonspecific ST-T wave changes. CT abdomen and pelvis without contrast was negative for acute findings. It showed small bilateral pleural effusions. CT angiogram of the chest showed moderate effusions along with pulmonary edema. IMPRESSION: 1. Acute on chronic systolic heart failure exacerbation. 2. Atrial fibrillation with rapid ventricular response. 3. History of mitral valve replacement on chronic anticoagulation. 4. Hypertension. 5. Medication noncompliance. 6. Bilateral pleural effusion with pulmonary edema. 7. Abdominal discomfort with normal LFTs secondary to passive hepatic congestion. 8. Chronic anticoagulation. 9. Penicillin and morphine allergy. 10. Family history of colon cancer. 11. Family history of heart disease. 12. Hypertension with hypertensive urgency. PLAN: The patient will be monitored in the telemetry unit. The patient will require 2 to 3 days for stabilization given her multiple comorbidities. She also has abnormal LFTs from passive hepatic congestion. We will start her on IV diuretics. Continue nitroglycerin patch. We will resume CLEM inhibitor as well as Aldactone. We will monitor labs on a daily basis. We will resume Coumadin at home dose and monitor PT/INR on daily basis. Fluid restriction. The patient was extensively counseled on congestive heart failure. We will get serial troponins. Consult Cardiovascular Team. Plan of care was discussed with the patient in detail. She stated understanding. Job ID: [id number] MTDD
[2018-11-13] MEDS ORDERED: Warfarin Sodium 10 MG TAB PO SCH (22:30)
[2018-11-13] MEDS ORDERED: Nitroglycerin 2% Ointment 1 INCH/1 GM Packet ONE (23:48)
[2018-11-14 01:02] VITALS: BMI 38.9
[2018-11-14] MEDS: Nitroglycerin 2% Ointment 1 INCH/1 GM Packet TOP SCH ×2 (01:29→05:40)
[2018-11-14 05:40] LABS: ALT (SGPT) 17 U/L (8-55); AST (SGOT) 25 U/L (5-34); Albumin 3.5 g/dL (3.5-5.0); Alkaline Phosphatase 90 U/L (40-150); Anion Gap 10 mmol/L (10-20); BUN (Urea Nitrogen) 16 mg/dL (7.0-18.7); Bilirubin, Total 1.7 mg/dL (0.2-1.2); Calc. Creatinine Clearance 137 mL/min (70-130); Calcium 9.1 mg/dL (7.8-10.44); Carbon Dioxide 26 mmol/L (22-29); Chloride 106 mmol/L (98-107); Estimated GFR-MDRD Greater than 90; Glucose 117 mg/dL (70-105); Magnesium 1.9 mg/dL (1.6-2.6); Potassium 3.3 mmol/L (3.5-5.1); Protein, Total 6.5 g/dL (6.0-8.3); Sodium 139 mmol/L (136-145); Troponin I Less than 0.010 ng/mL (< 0.028)
[2018-11-14] MEDS: Furosemide 40 MG/4 ML VIAL SLOW IVP SCH ×2 (05:40→14:23)
[2018-11-14] MEDS ORDERED: Potassium Chloride 20 MEQ TAB PO SCH (08:00)
[2018-11-14] MEDS: Carvedilol 6.25 MG TAB PO SCH ×2 (09:45→18:09)
[2018-11-14] MEDS: Aspirin 81 mg Enteric Coated Tablet PO SCH (09:45)
[2018-11-14] MEDS: Famotidine 20 MG TAB PO SCH ×2 (09:46→20:29)
[2018-11-14] MEDS: Spironolactone 25 MG TAB PO SCH ×2 (09:46→18:09)
[2018-11-14] MEDS: Lisinopril 5 MG TAB PO SCH ×2 (09:46→20:30)
--- NOTE | 2018-11-14 12:27 | EKG ---
Test Reason : Blood Pressure : / mmHG Vent. Rate : 089 BPM Atrial Rate : 375 BPM P-R Int : 000 ms QRS Dur : 086 ms QT Int : 414 ms P-R-T Axes : 000 061 168 degrees QTc Int : 503 ms Atrial fibrillation T wave abnormality, consider anterolateral ischemia or digitalis effect Prolonged QT Abnormal ECG Confirmed by JULES HOWE ([id number]), acquisition editor DAVID VARGAS ([id number]) on 11/14/2018 12:27:04 PM Referred By: Confirmed By:JULES HOWE
[2018-11-14] MEDS: Warfarin Sodium 5 MG TAB PO SCH (18:10)
[2018-11-14] MEDS ORDERED: Carvedilol 6.25 MG TAB PO SCH (19:30)
--- NOTE | 2018-11-14 21:50 | PDOC.PN ---
- Subjective Encounter Start Date: 11/14/18 Encounter Start Time: 09:45 Patient seen and examined for CHF flare. SOB slightly better. No CP. No new complaints. Overnight events reviewed. - Objective Resuscitation Status - Order Detail: 11/13/18 21:43 Resuscitation Status Routine Resuscitation Status: FULL: Full Resuscitation MAR Reviewed: Yes Vital Signs & Weight: Vital Signs (12 hours) Temp Pulse Resp BP BP Pulse Ox 11/14/18 20:30 82 113/62 11/14/18 20:28 113/62 11/14/18 18:09 150/70 H 11/14/18 16:00 97.7 F 90 18 150/70 H 97 11/14/18 12:00 97.3 F L 77 18 134/91 H 95 Weight Weight 215 lb 4.8 oz I&O: 11/13/18 11/14/18 11/15/18 06:59 06:59 06:59 Intake Total 100 480 Output Total 200 2400 Balance -100 -1920 Result Diagrams: 11/15/18 04:26 Radiology Reviewed by me: Yes (CXR - reviwed) EKG Reviewed by me: Yes (Tele Afib) Phys Exam - Physical Examination Constitutional: NAD Respiratory: no wheezing, no rhonchi few rales at bases, No accessory muscle use Cardiovascular: no rub, irregular no heaves/pulsations Gastrointestinal: soft, non-tender, no distention, positive bowel sounds Musculoskeletal: no edema, pulses present, edema present Neurological: non-focal, normal sensation, moves all 4 limbs Psychiatric: normal affect, A&O x 3 Dx/Plan - Plan DVT proph w/SCDs IMPRESSION: 1. Acute on chronic systolic heart failure exacerbation. 2. Atrial fibrillation with rapid ventricular response. 3. History of mitral valve replacement on chronic anticoagulation. 4. Hypertension with hypertensive urgency. 5. Medication noncompliance. 6. Bilateral pleural effusion with pulmonary edema. 7. Abdominal discomfort with normal LFTs secondary to passive hepatic congestion. 8. Chronic anticoagulation. 9. Penicillin and morphine allergy. 10. Family history of colon cancer. 11. Family history of heart disease. PLAN: Cont IV Lasix Increase Coreg dose DC NTG patch due to headache Replace Potassium AM labs Cont Tele monitoring Monitor Warfarin INR goal 2-5-3.5 Cont other meds as below Review of Systems - Review of Systems Respiratory: SOB with Excertion. negative: Cough, Dry, Shortness of Breath, Hemoptysis, Pleuritic Pain, Sputum, Wheezing Cardiovascular: edema. negative: chest pain, palpitations, orthopnea, paroxysmal nocturnal dyspnea, light headedness, other Gastrointestinal: negative: Nausea, Vomiting, Abdominal Pain, Diarrhea, Constipation, Melena, Hematochezia, Other - Medications/Allergies Allergies/Adverse Reactions: Allergies Allergy/AdvReac Type Severity Reaction Status Date / Time morphine Allergy Verified 11/14/18 00:53 Penicillins Allergy Verified 11/14/18 00:53 Medications: Current Medications Acetaminophen (Tylenol) 650 mg PO Q6H PRN PRN Reason: Headache/Fever/Mild Pain (1-3) Aspirin (Ecotrin) 81 mg PO DAILY [facility] Last Admin: 11/14/18 09:45 Dose: 81 mg Calcium Carbonate (Tums) 1,000 mg PO Q4H PRN PRN Reason: Heartburn or Indigestion [facility] Clonidine (Catapres) 0.1 mg PO Q4H PRN PRN Reason: SBP Greater Than 180 Famotidine (Pepcid) 20 mg PO BID [facility] Last Admin: 11/14/18 20:29 Dose: 20 mg Furosemide (Lasix) 40 mg SLOW IVP 0600,1400 [facility] Last Admin: 11/14/18 14:23 Dose: 40 mg Lisinopril (Zestril) 5 mg PO BID [facility] Last Admin: 11/14/18 20:30 Dose: 5 mg Miscellaneous Medication (Pharmacy To Dose) 1 each PO .WARFARIN PRN PRN Reason: DOSING Nitroglycerin (Nitrostat) 0.4 mg PO Q5MIN PRN PRN Reason: Chest Pain Ondansetron HCl (Zofran Odt) 4 mg PO Q6H PRN PRN Reason: Nausea/Vomiting Sodium Chloride (Flush - Normal Saline) 10 ml IVF PRN PRN PRN Reason: Saline Flush Last Admin: 11/14/18 09:47 Dose: 10 ml Spironolactone (Aldactone) 25 mg PO BID-[facility] Last Admin: 11/14/18 18:09 Dose: 25 mg Warfarin Sodium (Coumadin) 10 mg PO [email or web address]@[id number] [facility] Warfarin Sodium (Coumadin) 5 mg PO [email or web address]@1700 [facility] Last Admin: 11/14/18 18:10 Dose: 5 mg
--- NOTE | 2018-11-15 00:58 | CON ---
DATE OF CONSULTATION: HISTORY OF PRESENT ILLNESS: Heike Arango is a 47-year-old black female transferred from [facility] for increased shortness of breath. She does not remember any specific times as a child where she had excessive extremity pain and was confined to bed. However, when she was 14, she had a heart operation. She then had problems with trying to run in PE, where she would have syncopal episodes. Ultimately, she underwent mechanical mitral valve replacement at the age of 18. She does remember the words rheumatic fever and mitral stenosis and this was probably the etiology of her valvular heart disease. She has followed with Dr. Guzman since June 2017. She has chronic atrial fibrillation. She was hospitalized here in August 2017. Echocardiogram at that time revealed ejection fraction of 30% to 35%. Her medications for heart failure were optimized at that time. Last time she saw Dr. Guzman was in November 2017 in the office. Over the last two months, Ms. Arango has been out of lisinopril and furosemide. She continues to take carvedilol 25 mg one and one-half daily. She has had progressive dyspnea on exertion and some lower extremity edema. She also had some nausea and vomiting. When she presented, her blood pressure was 160/129. She has been diuresed at the present time and had significant improvement in her dyspnea. PAST MEDICAL HISTORY: Chronic atrial fibrillation, history of mitral valve replacement, left ventricular dysfunction with ejection fraction of 30% to 35%, hypertension, noncompliance. OPERATIONS: Tubal ligation, hysterectomy, hernia repair, and mechanical mitral valve replacement. MEDICATIONS: Warfarin and carvedilol 25 mg one to one-half b.i.d. ALLERGIES: MORPHINE AND PENICILLIN. SOCIAL HISTORY: She does not smoke or drink. FAMILY HISTORY: Father of [place] at age 50. PHYSICAL EXAMINATION: VITAL SIGNS: Blood pressure 150/70, pulse of 90. HEENT: PERRL. NECK: Supple. CHEST: Clear. There was an S1 click, S2 is normal. No significant murmurs heard. ABDOMEN: Normal bowel sounds without tenderness or organomegaly. EXTREMITIES: Revealed trace pretibial edema. NEUROLOGICAL: Grossly intact. SKIN: Warm and dry. LABORATORY DATA: EKG reveals atrial fibrillation with controlled ventricular response of 89 per minute, nonspecific T-wave changes. Echocardiogram revealed a small pericardial effusion, ejection fraction 30% to 35% with moderately enlarged right ventricle, moderately enlarged left atrium, mildly enlarged right atrium, normal mechanical valve in the mitral position, [id number] tricuspid regurgitation. Hemoglobin 10.8, hematocrit 37.7, white count 8400, platelets 238,000, INR 2.0. Sodium 139, potassium 3.3, chloride 106, carbon dioxide 26, BUN 16, creatinine 0.80. BNP 1120.5. Troponin I is normal. Liver function tests were normal. IMPRESSION: 1. Acute on chronic systolic heart failure. 2. Status post mechanical mitral valve replacement for mitral stenosis at age 18. 3. Chronic atrial fibrillation, rate controlled. 4. Hypertension. 5. Noncompliance. 6. Bilateral effusions. PLAN: The patient currently is on carvedilol 25 mg one to one-half b.i.d. at home and her carvedilol dose will be gradually increased. She will continue to be diuresed. INR goal should be 2.5-3.5 with mechanical valve. Job ID: [id number] MTDD
[2018-11-15 05:03] LABS: INR-International Normal Ratio 2.8; Prothrombin Time 29.1 SEC (12.0-14.7)
[2018-11-15] MEDS: Furosemide 40 MG/4 ML VIAL SLOW IVP SCH ×2 (05:07→13:00)
[2018-11-15 05:08] LABS: ALT (SGPT) 16 U/L (8-55); AST (SGOT) 24 U/L (5-34); Albumin 3.6 g/dL (3.5-5.0); Alkaline Phosphatase 91 U/L (40-150); Anion Gap 12 mmol/L (10-20); BUN (Urea Nitrogen) 18 mg/dL (7.0-18.7); Bilirubin, Total 1.5 mg/dL (0.2-1.2); Calc. Creatinine Clearance 134 mL/min (70-130); Calcium 8.9 mg/dL (7.8-10.44); Carbon Dioxide 29 mmol/L (22-29); Chloride 102 mmol/L (98-107); Estimated GFR-MDRD Greater than 90; Globulin 3.2 g/dL (2.4-3.5); Glucose 92 mg/dL (70-105); Magnesium 1.9 mg/dL (1.6-2.6); Potassium 3.2 mmol/L (3.5-5.1); Protein, Total 6.8 g/dL (6.0-8.3); Sodium 140 mmol/L (136-145)
[2018-11-15] MEDS: Carvedilol 6.25 MG TAB PO SCH ×2 (08:38→16:36)
[2018-11-15] MEDS: Spironolactone 25 MG TAB PO SCH ×2 (08:39→16:36)
[2018-11-15] MEDS: Potassium Chloride 20 MEQ TAB PO SCH ×2 (08:39→16:36)
[2018-11-15] MEDS: Aspirin 81 mg Enteric Coated Tablet PO SCH (08:39)
[2018-11-15] MEDS: Famotidine 20 MG TAB PO SCH ×2 (08:40→21:24)
[2018-11-15] MEDS: Lisinopril 5 MG TAB PO SCH ×2 (08:40→21:24)
[2018-11-15] MEDS: Warfarin Sodium 5 MG TAB PO SCH (16:36)
[2018-11-15] MEDS ORDERED: Warfarin Sodium 5 MG TAB PO SCH (17:15)
--- NOTE | 2018-11-15 23:33 | PDOC.PN ---
- Subjective Encounter Start Date: 11/15/18 Encounter Start Time: 09:45 Patient seen and examined for CHF. No CP/Palpitations. SOB improving. No new complaints. No overnight events - Objective Resuscitation Status - Order Detail: 11/13/18 21:43 Resuscitation Status Routine Resuscitation Status: FULL: Full Resuscitation MAR Reviewed: Yes Vital Signs & Weight: Vital Signs (12 hours) Temp Pulse Pulse Pulse Resp BP BP 11/15/18 21:24 76 120/75 11/15/18 20:00 97.3 F L 76 18 11/15/18 16:36 131/60 11/15/18 16:33 98.1 F 97 19 11/15/18 12:57 98.2 F 87 16 11/15/18 11:43 95 97 143/71 H BP BP Pulse Ox 11/15/18 21:24 11/15/18 20:00 120/75 97 11/15/18 16:36 11/15/18 16:33 131/60 95 11/15/18 12:57 122/79 96 11/15/18 11:43 115/56 L Weight Weight 215 lb 14.4 oz I&O: 11/14/18 11/15/18 11/16/18 06:59 06:59 06:59 Intake Total 100 1080 720 Output Total 200 2800 1500 Balance -100 -9986 -780 Result Diagrams: 11/16/18 05:08 Dx/Plan - Plan IMPRESSION: 1. Acute on chronic systolic heart failure exacerbation. improving 2. Atrial fibrillation with rapid ventricular response. 3. History of mitral valve replacement on chronic anticoagulation. 4. Hypertension with hypertensive urgency. 5. Medication noncompliance. 6. Bilateral pleural effusion with pulmonary edema. 7. Abdominal discomfort with normal LFTs secondary to passive hepatic congestion. 8. Chronic anticoagulation. 9. Penicillin and morphine allergy. 10. Family history of colon cancer. 11. Family history of heart disease. PLAN: Cont IV Lasix with fluid restriction Replace Potassium Cont Coreg BMP in AM Monitor Warfarin Cont other meds as below Review of Systems - Review of Systems Respiratory: negative: Cough, Dry, Shortness of Breath, Hemoptysis, SOB with Excertion, Pleuritic Pain, Sputum, Wheezing Cardiovascular: negative: chest pain, palpitations, orthopnea, paroxysmal nocturnal dyspnea, edema, light headedness, other - Medications/Allergies Allergies/Adverse Reactions: Allergies Allergy/AdvReac Type Severity Reaction Status Date / Time morphine Allergy Verified 11/14/18 00:53 Penicillins Allergy Verified 11/14/18 00:53 Medications: Current Medications Acetaminophen (Tylenol) 650 mg PO Q6H PRN PRN Reason: Headache/Fever/Mild Pain (1-3) Aspirin (Ecotrin) 81 mg PO DAILY [facility] Last Admin: 11/15/18 08:39 Dose: 81 mg Calcium Carbonate (Tums) 1,000 mg PO Q4H PRN PRN Reason: Heartburn or Indigestion Carvedilol (Coreg) 12.5 mg PO BID-[facility] Last Admin: 11/15/18 16:36 Dose: 12.5 mg Clonidine (Catapres) 0.1 mg PO Q4H PRN PRN Reason: SBP Greater Than 180 Famotidine (Pepcid) 20 mg PO BID [facility] Last Admin: 11/15/18 21:24 Dose: 20 mg Furosemide (Lasix) 40 mg PO DAILY-[facility] Lisinopril (Zestril) 5 mg PO BID [facility] Last Admin: 11/15/18 21:24 Dose: 5 mg Miscellaneous Medication (Pharmacy To Dose) 1 each PO .WARFARIN PRN PRN Reason: DOSING Nitroglycerin (Nitrostat) 0.4 mg PO Q5MIN PRN PRN Reason: Chest Pain Ondansetron HCl (Zofran Odt) 4 mg PO Q6H PRN PRN Reason: Nausea/Vomiting Sodium Chloride (Flush - Normal Saline) 10 ml IVF PRN PRN PRN Reason: Saline Flush Last Admin: 11/15/18 21:24 Dose: 10 ml Spironolactone (Aldactone) 25 mg PO BID-[facility] Last Admin: 11/15/18 16:36 Dose: 25 mg Warfarin Sodium (Coumadin) 10 mg PO [id number]@1700 [facility] Warfarin Sodium (Coumadin) 5 mg PO TuThSa@1700 [facility]
[2018-11-16 05:36] LABS: INR-International Normal Ratio 3.3; Prothrombin Time 33.8 SEC (12.0-14.7)
[2018-11-16 05:52] LABS: Anion Gap 11 mmol/L (10-20); BUN (Urea Nitrogen) 19 mg/dL (7.0-18.7); Calc. Creatinine Clearance 135 mL/min (70-130); Calcium 9.2 mg/dL (7.8-10.44); Carbon Dioxide 29 mmol/L (22-29); Chloride 103 mmol/L (98-107); Estimated GFR-MDRD Greater than 90; Glucose 88 mg/dL (70-105); Potassium 3.4 mmol/L (3.5-5.1); Sodium 140 mmol/L (136-145)
[2018-11-16] MEDS ORDERED: Furosemide 40 MG TAB PO SCH (07:30)
[2018-11-16] MEDS ORDERED: Potassium Chloride 20 MEQ TAB PO SCH ×2 (08:15→17:00)
[2018-11-16 08:44] VITALS: TEMP 97.7
[2018-11-16] MEDS: Spironolactone 25 MG TAB PO SCH (09:15)
[2018-11-16] MEDS: Famotidine 20 MG TAB PO SCH (09:15)
[2018-11-16] MEDS: Lisinopril 5 MG TAB PO SCH (09:15)
[2018-11-16] MEDS: Aspirin 81 mg Enteric Coated Tablet PO SCH (09:15)
[2018-11-16] MEDS: Carvedilol 6.25 MG TAB PO SCH (09:15)
[2018-11-16 11:12] VITALS: BP 132/83
[2018-11-16] MEDS ORDERED: Warfarin Sodium 10 MG TAB PO SCH (17:00)
--- NOTE | 2018-11-16 17:51 | DIS ---
DATE OF ADMISSION: 11/13/2018 DATE OF DISCHARGE: 11/16/2018 DISCHARGE DISPOSITION: Home. FOLLOWUP: 1. Follow up with primary care physician at the [facility] in 1 week. 2. Follow up with Dr. Wilfred Guzman 2 weeks later as scheduled. INSTRUCTIONS: 1. Outpatient cardiac rehab. 2. Basic metabolic profile after 1 and 2 weeks is recommended. Primary care physician to follow. ALLERGIES: THE PATIENT IS ALLERGIC TO MORPHINE AND PENICILLIN. DISCHARGE MEDICATIONS: 1. Warfarin 10 mg on Friday, Friday, Friday and 5 mg on Tuesdays, , Saturdays. 2. Aldactone 25 mg b.i.d. 3. Lisinopril 5 mg b.i.d. 4. Lasix 40 mg daily. 5. Carvedilol 12.5 mg b.i.d. 6. Aspirin 81 mg daily. 7. Sublingual nitroglycerin as needed. The patient was seen and examined on the day of discharge. Denies any new complaints. No chest pain, shortness of breath, or palpitations reported. She is ambulating in the hallways on room air. BRIEF HOSPITAL COURSE: The patient is a 47-year-old female with chronic systolic heart failure with ejection fraction 30% to 35%, presented to the hospital with shortness of breath. Please refer to the history and physical for further details. The patient was admitted to the hospital with a diagnosis of congestive heart failure exacerbation. She showed good improvement with oxygen supplementation, IV diuretics, and fluid restriction. She was also evaluated by Cardiology, Dr. Wilfred Guzman. She had transient episodes of atrial fibrillation with rapid ventricular response that improved after resumption of beta blockers. Coumadin level was monitored on a daily basis. INR on the day of discharge is 3.3. She was advised to follow up with her primary care physician as outpatient. Fluid restriction was extensively emphasized. FINAL DIAGNOSES: 1. Acute on chronic systolic heart failure exacerbation. Echocardiogram this admission showed ejection fraction 30% to 35%. 2. History of mitral valve replacement, on anticoagulation. 3. Atrial fibrillation with rapid ventricular response, rate controlled. 4. Hypertension with hypertensive urgency. 5. History of medication noncompliance. 6. Bilateral pleural effusion on admission with pulmonary edema, improved. 7. Abnormal LFTs secondary to passive hepatic congestion. 8. Chronic anticoagulation. 9. Family history of colon cancer. 10. Family history of heart disease. 11. Penicillin and morphine allergy. 12. Ppivjidp-iw-jtofuw tricuspid regurgitation. 13. Hypokalemia, replaced. LABORATORY DATA: Significant labs; total bilirubin on admission 2.3, at discharge 1.5. Potassium 3.4 on the day of discharge, replaced. BNP on admission 1120. TIME SPENT WITH PATIENT: Total time coordinating the discharge of this patient was 32 minutes. Job ID: [id number]
[2018-11-17] MEDS ORDERED: Warfarin Sodium 5 MG TAB PO SCH ×2 (17:00)
[2018-11-17] MEDS ORDERED: Warfarin Sodium 10 MG TAB PO SCH (17:00)
== END 2018-11-16 14:28 | disposition home or self-care (01) | DRG 293 ==
LOC: ERS 16:04 → 2NO 22:02
PROVIDERS: ADMIT Hospitalist; ATTEND Hospitalist
DX: I11.0 Hypertensive heart disease with heart failure (principal); I50.23 Acute on chronic systolic (congestive) heart failure; I48.2 Chronic atrial fibrillation; K59.09 Other constipation; K76.1 Chronic passive congestion of liver; I07.1 Rheumatic tricuspid insufficiency; E87.6 Hypokalemia; I16.0 Hypertensive urgency; Z88.6 Allergy status to analgesic agent; Z90.710 Acquired absence of both cervix and uterus; Z91.14 Patient's other noncompliance with medication regimen; Z95.2 Presence of prosthetic heart valve; Z91.19 Patient's noncompliance with other medical treatment and regimen; Z79.01 Long term (current) use of anticoagulants; Z98.51 Tubal ligation status; Z88.0 Allergy status to penicillin; Z79.82 Long term (current) use of aspirin; Z79.899 Other long term (current) drug therapy; Z86.73 Personal history of transient ischemic attack (TIA), and cerebral infarction without residual deficits
CPT/HCPCS: 36415; 71275; 80048; 80053; 83735; 83880; 84484; 85379; 85610; 93005; 93306; 93798; 96374; 96375; J1940; J2060; Q9966

== ENCOUNTER 2019-11-07 06:33 | Inpatient (IN) | payer OTHER ==
--- NOTE | 2019-11-07 07:53 | RAD ---
Exam: Chest one view HISTORY:Shortness of breath Comparison: 11/13/2018 FINDINGS: Cardiac silhouette:Cardiomegaly. Sternotomy wires Aorta: Unremarkable Pulmonary vessels: Normal Costophrenic angles: Left pleural effusion LUNGS: Parenchymal changes in the left lung base Pneumothorax: None Osseous abnormalities: None IMPRESSION: Pleural and parenchymal changes in the left lung base.
[2019-11-07] MEDS ORDERED: Nitroglycerin 2% Ointment 1 INCH/1 GM Packet ONE (07:57)
[2019-11-07 09:16] LABS: Hemoglobin 10.8 g/dL (12.0-16.0); Mean Corpuscular HGB CONC 32.3 g/dL (32.0-36.0); Mean Corpuscular Hemoglobin 21.2 pg (27.0-31.0); Mean Corpuscular Volume 65.5 fL (78.0-98.0); Mean Platelet Volume 6.8 fL (7.4-10.4); Platelet Count 197 thou/uL (130-400); White Blood Cell (WBC) Count 6.9 thou/uL (4.8-10.8)
[2019-11-07 09:25] LABS: ALT (SGPT) 18 U/L (8-55); AST (SGOT) 26 U/L (5-34); Albumin 3.8 g/dL (3.5-5.0); Alkaline Phosphatase 96 U/L (40-110); Anion Gap 10 mmol/L (10-20); BUN (Urea Nitrogen) 18 mg/dL (7.0-18.7); Bilirubin, Total 1.8 mg/dL (0.2-1.2); Calc. Creatinine Clearance 0 mL/min (70-130); Calcium 8.6 mg/dL (7.8-10.44); Carbon Dioxide 24 mmol/L (22-29); Chloride 108 mmol/L (98-107); Estimated GFR-MDRD Greater than 90; Glucose 94 mg/dL (70-105); Lipase 17 U/L (8-78); Potassium 3.4 mmol/L (3.5-5.1); Protein, Total 6.8 g/dL (6.0-8.3); Sodium 139 mmol/L (136-145)
[2019-11-07 09:36] LABS: #Basophils 0.1 thou/uL (0.0-0.2); #Eosinphils 0.1 thou/uL (0.0-0.7); #Lymphocytes 1.9 thou/uL (1.20-3.40); #Monocytes 0.6 thou/uL (0.11-0.59); #Neutrophils 4.1 thou/uL (1.40-6.50); %Basophils 0.9 % (0.0-1.0); %Eosinophils 1.7 % (0.0-10.0); %Lymphocytes 28.3 % (21.0-51.0); %Monocytes 9.1 % (0.0-10.0); Anisocytosis SLIGHT = 6-15 cells (100X) (0-5/hpf); Burr Cells SLIGHT = 2-5 cells (100X) (0-1/hpf); Hypochromia MODERATE=16-30 cells (100X) (0-5/hpf); MDiff Complete? YES; Platelet Morphology Comment Appears Adequate; Target Cells SLIGHT = 2-5 cells (100X) (0-1/hpf); Tear Drops SLIGHT = 2-5 cells (100X) (0-1/hpf)
[2019-11-07] MEDS ORDERED: Aspirin Chewable 81 MG TAB ONE (09:40)
[2019-11-07] MEDS ORDERED: Fentanyl 100 MCG/2 ML VIAL ONE (09:40)
[2019-11-07 09:45] LABS: CKMB 2.6 ng/mL (0-6.6)
[2019-11-07 09:50] LABS: INR-International Normal Ratio 2.2; Prothrombin Time 24.2 sec (12.0-14.7)
[2019-11-07] MEDS ORDERED: Furosemide 40 MG/4 ML VIAL ONE (10:28)
[2019-11-07] MEDS ORDERED: Potassium Chloride 20 MEQ TAB ONE (10:28)
[2019-11-07] MEDS ORDERED: Ondansetron PF 4 MG/2 ML Vial ONE ×2 (10:36→11:58)
[2019-11-07 10:53] LABS: BHCG - Serum Negative (NEGATIVE); Pregs Control Background? CLEAR/WHITE (CLR/WHITE); Pregs Control Bar Appear? YES (CONTROL BAR)
--- NOTE | 2019-11-07 11:10 | CT ---
Exam: CT angiogram of the chest HISTORY: Dyspnea. Previous cardiac surgery. Mitral valve replacement. COMPARISON: 11/13/2018 TECHNIQUE: CT angiogram of the chest is performed in the axial plane. Three-dimensional reformatted i mages are submitted for interpretation FINDINGS: Mediastinum: No mass, lymphadenopathy or hematoma. HEART: Cardiomegaly. No significant pericardial fluid. Aorta: No aneurysm or dissection Upper solid abdominal viscera: No abnormality enhancement. Trachea and central bronchi: Trachea and central bronchi are patent. There is bilateral central airwa y wall thickening. Correlate for reactive airway disease. Pleural spaces: Bilateral pleural effusions. Small component of loculated fluid tracks along the left major fissure. Lung parenchyma: Patchy groundglass opacities, nonspecific. More focal consolidation in the left lowe r lobe likely represents atelectasis. Component of aspiration or pneumonia cannot be excluded. Pneumothorax: None Osseous structures: No lytic or blastic lesions Pulmonary arteries: Adequate contrast opacification pulmonary arterial system to the level of segment al arteries. No filling defect to suggest pulmonary embolism. Stable dilatation of the pulmonary trunk. Correlate for pulmonary hypertension. IMPRESSION: 1. No evidence of pulmonary artery embolism to the level segmental arteries 2. Stable dilatation of the main pulmonary trunk. Correlate for early pulmonary hypertension. 3. Bilateral central peribronchial thickening. Correlate for reactive airway disease.
[2019-11-07 11:19] LABS: Bilirubin Negative (Negative); Blood, Urine Negative (Negative); Clarity Clear (Clear); Glucose, Urine (Dipstick) Normal (Negative); Leukocyte Negative Leu/uL (Negative); Nitrite Negative (Negative); Protein, Urine (Dipstick) 20 mg/dL (Neg-Trace); Urobilinogen Normal mg/dL (Less than 2)
[2019-11-07] MEDS ORDERED: Ondansetron ODT 4 MG TAB PO PRN (12:30)
[2019-11-07] MEDS ORDERED: Senokot S 8.6-50 MG TAB PO PRN (12:30)
[2019-11-07] MEDS ORDERED: Acetaminophen 325 MG TAB PO PRN (12:30)
[2019-11-07] MEDS ORDERED: Nitroglycerin 0.4 MG TAB 1 EACH SL PRN (12:33)
[2019-11-07] MEDS ORDERED: cefTRIAXone\\ROCEPHIN 2 GM VIAL ONE (12:37)
[2019-11-07] MEDS ORDERED: Iopamidol-370 76% 500 ML 1 ML ONE (13:29)
[2019-11-07] MEDS ORDERED: Acetaminophen 500 MG TAB ONE (13:29)
[2019-11-07] MEDS ORDERED: Promethazine HCl 25 MG/ML VIAL ONE (13:37)
[2019-11-07 14:46] LABS: Troponin I 0.027 ng/mL (< 0.028)
--- NOTE | 2019-11-07 15:04 | HP ---
CHIEF COMPLAINT: Shortness of breath and worsening edema. HISTORY OF PRESENT ILLNESS: This is a 48-year-old female with a history of mechanical mitral valve with rheumatic disease at age 14; coronary artery disease; hypertension; DVT/PE, on Coumadin and questionable noncompliant, presenting with dyspnea on exertion since Friday. She also experienced some chest tightness bilaterally. On initial presentation, she had elevated blood pressure of 190/ 128, tachypnea with a rate of 38, and pulse oximetry of 90% to 94% without oxygen, improved to 100% with 2 L oxygen. Her BNP was 640. Chest x-ray without mirna infiltrate, cardiomegaly, and vascular congestion. The patient will be admitted for acute CHF exacerbation. During my exam, the patient is quite sleepy and somnolent, not able to get much information. She did say that she is quite short of breath, which made her to come to the ER. She states that she did miss at least 2 to 3 times a week taking her medications. REVIEW OF SYSTEMS: A 13-point review of systems was not reviewed completely as the patient is quite sleepy and difficult to get details from her. ALLERGIES: SHE IS ALLERGIC TO MORPHINE AND PENICILLIN. PAST MEDICAL HISTORY: 1. Chronic atrial fibrillation. 2. Mitral valve replacement in 1985 and on Coumadin since then. 3. Chronic systolic heart failure with last EF of 35% in 2019. 4. Hypertension. 5. Medication noncompliance. 6. Chronic anticoagulation with Coumadin. SOCIAL HISTORY: Not obtained, but she lives with her family. No smoking. FAMILY HISTORY: Significant for colon cancer. PHYSICAL EXAMINATION: VITAL SIGNS: She is afebrile and normotensive. GENERAL: She is quite sleepy during my exam. Not much history elicited, but exam did not reveal any acute toxicity. HEENT: Pupils are equal, round, and reactive to light. CARDIOVASCULAR: Irregular rate, regular rhythm. A 3/6 diastolic murmur. EXTREMITIES: She does have pitting edema 2+ bilaterally. ABDOMEN: Distended with body habitus, but no palpable organomegaly. Good bowel sounds. LUNGS: No adventitious lung sounds with anterior auscultation. NEUROLOGIC: No focal deficits. LABORATORY DATA: CBC in the normal range. Potassium 3.4. Troponin 0.31. Total bilirubin 1.8. BNP 640. Creatinine 0.81. Rest of the CMP panel in the normal range. Her INR is 2.2. D-dimer 0.40. Chest x-ray without any mirna infiltrate, but cardiomegaly and vascular congestion. Chest CTA showed no evidence of PE and stable dilation of the main pulmonary trunk. She has patchy ground-glass opacities, nonspecific; more focal consolidation in the left lower lobe, probably aspiration pneumonia cannot be excluded. IMPRESSION AND PLAN: A 48-year-old female with a history of congestive heart failure, hypertension, rheumatoid heart disease, and mechanical mitral valve replacement, presenting with probable congestive heart failure exacerbation. 1. Acute on chronic systolic congestive heart failure exacerbation. 2. Chronic atrial fibrillation. 3. 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 4. Medication noncompliance. 5. Possible bronchitis versus pulmonary congestion secondary to congestive heart failure exacerbation. Clinical history, labs and imaging suggestive of congestive heart failure exacerbation. The patient denies any risk exposure for COVID; however, given difficulty to obtain history and shortness of breath, which could be secondary to congestive heart failure exacerbation, we will rule out COVID. ER has screened her for COVID. We will follow the precautions for now. 6. Continue with Coumadin for deep venous thrombosis prophylaxis. 7. Strict input and output, daily weights and diuresis with Lasix b.i.d. Her last echo again done in 2019 showing ejection fraction of 35%, right ventricular enlargement, and left atrial enlargement as well as severe tricuspid regurgitation and mechanical prosthetic valve in the mitral valve area. We will repeat the echo to assess her ejection fraction. Cardiology consult with Dr. Munoz has been placed. 8. Full code. ADDENDUM: HOME MEDICATIONS: 1. Coumadin 10 mg Friday, Friday, Friday and 5 mg on Friday and . 2. Spironolactone 25 mg twice a day. 3. Lisinopril 5 mg twice a day. 4. Coreg 12.5 mg twice a day. 5. Aspirin 81 mg daily. 6. Lasix 40 mg daily. Job ID: [id number] [facility]
[2019-11-07 16:12] VITALS: BMI 37.9
[2019-11-07] MEDS: Furosemide 40 MG/4 ML VIAL SLOW IVP SCH (16:38)
[2019-11-07 17:33] LABS: Troponin I 0.028 ng/mL (< 0.028)
[2019-11-07] MEDS: Spironolactone 25 MG TAB PO SCH (18:08)
[2019-11-07] MEDS ORDERED: Albuterol 200 PUFF (6.7GM INHALER) INH SCH (19:30)
[2019-11-07] MEDS: Lisinopril 5 MG TAB PO SCH (19:47)
[2019-11-07] MEDS: Carvedilol 6.25 MG TAB PO SCH (19:47)
[2019-11-07 20:24] LABS: Hemoglobin 12.3 g/dL (12.0-16.0); Platelet Count 220 thou/uL (130-400)
[2019-11-07 21:24] LABS: CKMB 2.7 ng/mL (0-6.6)
[2019-11-08] MEDS: Albuterol 200 PUFF (6.7GM INHALER) INH SCH ×4 (01:00→22:11)
[2019-11-08 04:58] LABS: #Eosinphils 0.1 thou/uL (0.0-0.7); #Lymphocytes 1.5 thou/uL (1.20-3.40); #Monocytes 0.8 thou/uL (0.11-0.59); #Neutrophils 6.3 thou/uL (1.40-6.50); %Basophils 0.4 % (0.0-1.0); %Eosinophils 1.3 % (0.0-10.0); %Lymphocytes 16.7 % (21.0-51.0); %Monocytes 9.6 % (0.0-10.0); Hemoglobin 10.8 g/dL (12.0-16.0); Mean Corpuscular HGB CONC 31.4 g/dL (32.0-36.0); Mean Corpuscular Hemoglobin 20.5 pg (27.0-31.0); Mean Corpuscular Volume 65.4 fL (78.0-98.0); Mean Platelet Volume 7.1 fL (7.4-10.4); Platelet Count 199 thou/uL (130-400); Red Blood Cell (RBC) Count 5.28 mill/uL (4.20-5.40); White Blood Cell (WBC) Count 8.7 thou/uL (4.8-10.8)
[2019-11-08 05:00] LABS: PTT 42.4 sec (22.9-36.1)
[2019-11-08 05:04] LABS: INR-International Normal Ratio 1.9; Prothrombin Time 21.8 sec (12.0-14.7)
[2019-11-08 05:20] LABS: ALT (SGPT) 13 U/L (8-55); AST (SGOT) 23 U/L (5-34); Albumin 3.5 g/dL (3.5-5.0); Alkaline Phosphatase 89 U/L (40-110); Anion Gap 12 mmol/L (10-20); BUN (Urea Nitrogen) 15 mg/dL (7.0-18.7); Bilirubin, Total 1.3 mg/dL (0.2-1.2); Calc. Creatinine Clearance 121 mL/min (70-130); Calcium 8.6 mg/dL (7.8-10.44); Carbon Dioxide 26 mmol/L (22-29); Chloride 106 mmol/L (98-107); Estimated GFR-MDRD 83; Globulin 3.3 g/dL (2.4-3.5); Glucose 105 mg/dL (70-105); Protein, Total 6.8 g/dL (6.0-8.3); Sodium 141 mmol/L (136-145)
[2019-11-08] MEDS: Furosemide 40 MG/4 ML VIAL SLOW IVP SCH ×2 (05:55→16:12)
[2019-11-08] MEDS: Spironolactone 25 MG TAB PO SCH ×2 (08:55→16:12)
[2019-11-08] MEDS: Lisinopril 5 MG TAB PO SCH ×2 (08:56→20:22)
[2019-11-08] MEDS: Aspirin Chewable 81 MG TAB PO SCH (08:56)
[2019-11-08] MEDS: Potassium Chloride 20 MEQ TAB PO SCH ×2 (08:56→10:23)
[2019-11-08] MEDS: Carvedilol 6.25 MG TAB PO SCH ×2 (08:56→20:22)
--- NOTE | 2019-11-08 14:05 | PDOC.HOSPP ---
- Subjective Encounter Date: 11/08/19 Encounter Time: 11:30 Subjective: feels she cant swallow K pills, and does not want to take any pills as they are big. she is not ambulating and feels quite weak. - Objective Vital Signs & Weight: Vital Signs (12 hours) Temp Pulse Resp BP BP Pulse Ox 11/08/19 12:20 98.8 F 73 18 97/50 L 96 11/08/19 08:55 99.0 F 94 18 111/76 96 11/08/19 03:30 99.0 F 84 16 129/76 98 Weight Weight 217 lb 3.2 oz I&O: 11/07/19 11/08/19 11/09/19 06:59 06:59 06:59 Intake Total 390 Balance 390 Result Diagrams: 11/08/19 04:16 11/08/19 04:16 Hospitalist ROS - Medication Medications: Active Medications Generic Name Dose Route Start Last Admin Trade Name Freq PRN Reason Stop Dose Admin Albuterol Sulfate 2 puff 11/08/19 01:00 11/08/19 08:55 Proventil Hfa INH 2 puff [id number] SUNNY Administration Aspirin 81 mg 11/08/19 09:00 11/08/19 08:56 Aspirin Chewable PO 81 mg DAILY SUNNY Administration Carvedilol 12.5 mg 11/07/19 21:00 11/08/19 08:56 Coreg PO 12.5 mg BID SUNNY Administration Furosemide 40 mg 11/07/19 14:00 11/08/19 05:55 Lasix SLOW IVP 40 mg 0600,1400 SUNNY Administration Lisinopril 5 mg 11/07/19 21:00 11/08/19 08:56 Zestril PO 5 mg BID SUNNY Administration Spironolactone 25 mg 11/07/19 17:00 11/08/19 08:55 Aldactone PO 25 mg BID-WM SUNNY Administration - Exam General Appearance: NAD, awake alert Eye: PERRL ENT: normocephalic atraumatic Neck: supple Heart: RRR, normal peripheral pulses Respiratory: CTAB, normal chest expansion Gastrointestinal: soft, normal bowel sounds Neurological: no weakness, no focal deficits Psychiatric: normal affect, A&O x 3 Hosp A/P - Plan acute on chronic sys/diastl CHF exacerbation mechanical mitral valve - on coumadin--subtherapeutic on chronic afib Hypokalemia Non-compliance ? bronchitis --IV diuresis - strict/in/out -zithromax -pending COVID Hypokalemia - liquid K weakness --PT consult once COVID r/o, will contact cardiol and echo.
[2019-11-08 14:54] LABS: SARS-CoV-2 MS2 Positive; SARS-CoV-2 N Gene Negative; SARS-CoV-2 S Gene Negative; SARS-CoV-2 orf1ab Negative
[2019-11-08] MEDS ORDERED: Warfarin Sodium 5 MG TAB PO SCH (16:45)
[2019-11-08] MEDS ORDERED: Warfarin Sodium 10 MG TAB PO SCH (17:00)
--- NOTE | 2019-11-08 20:08 | CON ---
DATE OF CONSULTATION: HISTORY OF PRESENT ILLNESS: The patient is a 48-year-old woman with a history of mitral valve replacement, cardiomyopathy, who presented with increasing dyspnea. The patient has previously undergone mitral valve replacement in 1985. She also has chronic atrial fibrillation. She has been on chronic anticoagulation therapy. She was admitted with congestive heart failure in 2018. The patient has subsequently been on medical therapy. She re-presented in October of 2018 with congestive heart failure. The patient states she has been compliant with her medications. She presents once again with increasing dyspnea. The patient states she has been under a great deal of stress. She states she has been compliant with her low-sodium diet. PAST MEDICAL HISTORY: 1. Cardiomyopathy. 2. Hypertension. 3. Chronic atrial fibrillation. 4. History of mitral valve replacement. PAST SURGICAL HISTORY: Hysterectomy, tubal ligation, mitral valve replacement, hernia surgery. SOCIAL HISTORY: Nonsmoker. MEDICATIONS: See nursing list. REVIEW OF SYSTEMS: Ten-point system otherwise unremarkable. PHYSICAL EXAMINATION: GENERAL: Obese woman, in no acute distress. Blood pressure is 111/76. NECK: No jugular venous distention. LUNGS: Clear to auscultation. HEART: Irregular rate and rhythm with a mitral click. No murmurs. ABDOMEN: Distended. EXTREMITIES: Showed mild edema. LABORATORY DATA: Sodium 140, potassium 3.0, chloride 106, bicarbonate 26, BUN 15, creatinine 0.89, glucose is 105. Troponin was 0.04. White blood cell count is 8.7, hemoglobin 10.8, hematocrit 34.5, platelets are 199. INR was 1.9. EKG atrial fibrillation with a nonspecific ST-T wave abnormality. IMPRESSION: 1. Hypertensive crisis. 2. Cardiomyopathy. 3. History of mitral valve replacement. 4. Chronic permanent atrial fibrillation. 5. Obesity. This patient presents with a hypertensive crisis. She states that she has been under a great deal of stress. The patient's blood pressure has returned to normal. The patient is being diuresed with Lasix. We will follow this patient with you through her hospitalization. Job ID: [id number] [facility]
[2019-11-09] MEDS: Albuterol 200 PUFF (6.7GM INHALER) INH SCH ×5 (00:18→23:59)
[2019-11-09 04:17] LABS: PTT 45.9 sec (22.9-36.1)
[2019-11-09 04:21] LABS: INR-International Normal Ratio 2.1; Prothrombin Time 23.8 sec (12.0-14.7)
[2019-11-09 04:25] LABS: Potassium 3.3 mmol/L (3.5-5.1)
[2019-11-09] MEDS: Furosemide 40 MG/4 ML VIAL SLOW IVP SCH ×2 (04:43→16:04)
[2019-11-09] MEDS ORDERED: Potassium Chloride 10 MEQ TAB PO SCH (08:00)
[2019-11-09] MEDS: Aspirin Chewable 81 MG TAB PO SCH (10:01)
[2019-11-09] MEDS: Spironolactone 25 MG TAB PO SCH ×2 (10:01→16:04)
[2019-11-09] MEDS: Carvedilol 6.25 MG TAB PO SCH ×2 (10:01→20:20)
[2019-11-09] MEDS: Lisinopril 5 MG TAB PO SCH ×2 (10:02→20:20)
[2019-11-09] MEDS: Potassium Chloride 20 MEQ TAB PO SCH (10:09)
--- NOTE | 2019-11-09 13:26 | PDOC.HOSPP ---
- Subjective Encounter Date: 11/09/19 Encounter Time: 09:20 Subjective: pt is more active today, stays that when she climbs about 10 steps - she gets SOB and able to do daily ADL activities, ambulated w.. PT here. output is not recorded completely. - Objective Vital Signs & Weight: Vital Signs (12 hours) Temp Pulse Pulse Pulse Resp BP BP 11/09/19 11:25 97.6 F 78 17 11/09/19 11:01 79 86 92/57 L 11/09/19 07:48 97.5 F L 73 15 117/71 11/09/19 04:36 98.1 F 75 16 102/59 L BP Pulse Ox Pulse Ox Pulse Ox 11/09/19 11:25 106/53 L 98 11/09/19 11:01 95 94 L 11/09/19 07:48 100 11/09/19 04:36 96 Weight Weight 209 lb 7.026 oz I&O: 11/08/19 11/09/19 11/10/19 06:59 06:59 06:59 Intake Total 390 1510 Balance 390 1510 Result Diagrams: 11/08/19 04:16 11/09/19 03:35 Hospitalist ROS - Medication Medications: Active Medications Generic Name Dose Route Start Last Admin Trade Name Freq PRN Reason Stop Dose Admin Albuterol Sulfate 2 puff 11/08/19 01:00 11/09/19 12:25 Proventil Hfa INH 2 puff [id number] SUNNY Administration Aspirin 81 mg 11/08/19 09:00 11/09/19 10:01 Aspirin Chewable PO 81 mg DAILY SUNNY Administration Carvedilol 12.5 mg 11/07/19 21:00 11/09/19 10:01 Coreg PO 12.5 mg BID SNUNY Administration Furosemide 40 mg 11/07/19 14:00 11/09/19 04:43 Lasix SLOW IVP 40 mg 0600,1400 SUNNY Administration Lisinopril 5 mg 11/07/19 21:00 11/09/19 10:02 Zestril PO 5 mg BID SUNNY Administration Potassium Chloride 20 meq 11/09/19 08:00 11/09/19 10:09 K-Dur PO 20 meq QAM-WM SUNNY Administration Spironolactone 25 mg 11/07/19 17:00 11/09/19 10:01 Aldactone PO 25 mg BID-WM SUNNY Administration Warfarin Sodium 10 mg 11/08/19 17:00 11/08/19 16:12 Coumadin PO 10 mg [id number] [facility] Administration - Exam General Appearance: NAD, awake alert Eye: PERRL ENT: normocephalic atraumatic Neck: supple Heart: RRR Respiratory: CTAB, normal chest expansion Gastrointestinal: soft, normal bowel sounds Extremities: 1+ LE edema Neurological: no focal deficits Hosp A/P - Plan acute on chronic sys/diastl CHF exacerbation mechanical mitral valve - on coumadin--subtherapeutic on chronic afib Hypokalemia Non-compliance ? bronchitis --IV diuresis - strict/in/out -zithromax dc'd [] -- -- will request strict in and output as unclear [1500ml intake? or output?] prob non-ischemic CMY LVD, RVD and LAE and GUILLERMO. --echo showed EF of 35% - on aCEI and cr holding up w.. diuresis Hypokalemia - liquid K -being replaced. weakness --PT consult - no issues w.. ambulation. COVID neg , will contact cardiol and echo.
[2019-11-09] MEDS ORDERED: Warfarin Sodium 5 MG TAB PO SCH (17:00)
[2019-11-10 04:35] LABS: INR-International Normal Ratio 2.6; Prothrombin Time 27.6 sec (12.0-14.7)
[2019-11-10 04:36] LABS: PTT 48.6 sec (22.9-36.1)
[2019-11-10] MEDS: Furosemide 40 MG/4 ML VIAL SLOW IVP SCH (05:50)
[2019-11-10] MEDS: Albuterol 200 PUFF (6.7GM INHALER) INH SCH (06:40)
[2019-11-10] MEDS: Lisinopril 5 MG TAB PO SCH (08:31)
[2019-11-10] MEDS: Potassium Chloride 20 MEQ TAB PO SCH (08:31)
[2019-11-10] MEDS: Aspirin Chewable 81 MG TAB PO SCH (08:31)
[2019-11-10] MEDS: Carvedilol 6.25 MG TAB PO SCH (08:31)
[2019-11-10] MEDS: Spironolactone 25 MG TAB PO SCH (08:31)
[2019-11-10 10:45] LABS: Hemoglobin 12.3 g/dL (12.0-16.0); Platelet Count 241 thou/uL (130-400)
[2019-11-10 11:25] VITALS: BP 98/55; TEMP 97.5
--- NOTE | 2019-11-10 13:39 | DIS ---
DATE OF ADMISSION: 11/07/2019 DATE OF DISCHARGE: 11/10/2019 DISCHARGE MEDICATIONS: 1. Aspirin 81 mg daily. 2. Coreg 12.5 mg twice a day. 3. Lasix 40 mg daily. 4. Lisinopril 5 mg twice a day. 5. Nitroglycerin 0.4 mg sublingual as needed for chest pain. 6. Spironolactone 25 mg twice a day. 7. Coumadin 5 mg on Friday, , and 10 mg on Friday, Friday, Friday. DISCHARGE DIAGNOSES: 1. [id number] systolic and diastolic congestive heart failure exacerbation. 2. Probable nonischemic cardiomyopathy with EF of 35%, along with right ventricle dilatation as well as left atrium and the right atrium enlargement. 3. Noncompliance with medications. 4. Hypokalemia. 5. Generalized weakness. 6. Mechanical mitral valve secondary to rheumatic heart valve in childhood, on Coumadin. 7. Chronic atrial fibrillation. 8. COVID ruled out. PHYSICAL EXAMINATION: VITAL SIGNS: On the day of discharge, temperature 97.5, pulse 86, blood pressure 98/55, saturating 97% on room air. GENERAL: The patient is alert, oriented. Discharge plan discussed with her and she is comfortable going home today. CARDIOVASCULAR: Regular rate and rhythm without murmurs, rubs, or gallops. LUNGS: Clear to auscultation bilaterally without wheezing, rales, or rhonchi. ABDOMEN: Soft, nontender. Good bowel sounds. EXTREMITIES: Lower extremities still she has some ankle edema, but she is ambulating without any distress in the hallway. Cardiology consult with Dr. Guzman. DIAGNOSTIC STUDIES: Echocardiogram showed EF of 35% and the left ventricle as well as right ventricle dilatation as well as mitral regurgitation. HOSPITAL COURSE: A 48-year-old female with a history of mechanical mitral valve with rheumatic disease at the age of 14 on Coumadin and history of DVT and PE. She presented with hypertensive urgency, tachypnea with a rate of 38, and pulse ox of 90% improved to 100% with 2 L oxygen. Initial BNP was 640. Chest x-ray without any mirna infiltrate, but vascular congestion. The patient is admitted for acute CHF exacerbation. The patient also get very short of breath at home as she has to climb at least 8-10 steps. 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 She skipped some of her home medications and feels that may contribute to her symptoms and presentation to the ER. She was diuresed well. She responded to IV diuresis well. She lost about 7 pounds during this last 2 days of diuresis. Initially for the 1st two days she was quite lethargic and not able to move around much. After improvement on the diuresis, she is able to get up and walk around without any dyspnea on exertion. She is also saturating well. COVID ruled out. To be noted that her blood pressures seems to be in the low normal range. Hence, I could not aggressively up titrate her lisinopril which she takes 5 mg twice a day along with Lasix 40 mg daily. Her EF is 35%. Dr. Guzman followed with us. I have counselled her on adherence to cardiac meds and likely EF would improve with proper adherence and diet. May need to repeat echo in 3 to 6months time. She is hemodynamically stable and clinically sound enough to be discharged home today. DISCHARGE INSTRUCTIONS: Activity as tolerated. 2 g sodium diet. I have explained to the patient to log her weight every few days at least for the next 2 weeks and take it to her primary care physician versus clearance rep to titrate her medications as needed. I also informed her that if she has more than 3 pounds weight gain over 3-4 days she needs to call PCP or her clearance rep for uptitration of her diuretics. Follow up with the primary care physician in 1 week. Follow up with Dr. Guzman in 1 to 2 weeks as needed. Discharge time took over 35 minutes. Job ID: [id number] [facility]
== END 2019-11-10 12:04 | disposition home or self-care (01) | DRG 292 ==
LOC: ERS 06:33 → 2SW 15:51 → OBSVTOIN 15:51 → 2NO 11-08 19:02
PROVIDERS: ADMIT Internal Medicine; ATTEND Internal Medicine
PROC: 8E0ZXY6 Isolation (ICD-10-PCS; principal; 2019-11-07)
DX: I11.0 Hypertensive heart disease with heart failure (principal); I48.20 Chronic atrial fibrillation, unspecified; I16.9 Hypertensive crisis, unspecified; I48.21 Permanent atrial fibrillation; Z20.828 Contact with and (suspected) exposure to other viral communicable diseases; I50.43 Acute on chronic combined systolic (congestive) and diastolic (congestive) heart failure; I42.8 Other cardiomyopathies; E87.6 Hypokalemia; I25.10 Atherosclerotic heart disease of native coronary artery without angina pectoris; I16.0 Hypertensive urgency; K59.09 Other constipation; Z91.14 Patient's other noncompliance with medication regimen; Z79.01 Long term (current) use of anticoagulants; Z86.718 Personal history of other venous thrombosis and embolism; Z86.711 Personal history of pulmonary embolism; Z95.2 Presence of prosthetic heart valve; Z86.73 Personal history of transient ischemic attack (TIA), and cerebral infarction without residual deficits; Z90.710 Acquired absence of both cervix and uterus; Z98.51 Tubal ligation status; Z88.6 Allergy status to analgesic agent; Z88.0 Allergy status to penicillin
CPT/HCPCS: 36415; 71045; 71275; 80053; 81003; 82553; 82728; 83605; 83690; 83880; 84132; 84484; 84703; 85014; 85018; 85025; 85049; 85379; 85610; 85730; 86140; 87040; 87086; 87635; 93005; 93306; 93798; 96365; 96375; 96376; J0696; J1940; J2405; J2550; J3010; Q9967; U0003

== ENCOUNTER 2020-09-20 07:38 | Inpatient (IN) | payer OTHER ==
[2020-09-20] MEDS ORDERED: Ondansetron PF 4 MG/2 ML Vial ONE (08:18)
[2020-09-20 09:20] LABS: #Basophils 0.1 thou/uL (0.0-0.2); #Eosinphils 0.1 thou/uL (0.0-0.7); #Lymphocytes 1.7 thou/uL (1.20-3.40); #Monocytes 0.6 thou/uL (0.11-0.59); #Neutrophils 3.5 thou/uL (1.40-6.50); %Basophils 0.9 % (0.0-1.0); %Eosinophils 1.6 % (0.0-10.0); %Monocytes 10.7 % (0.0-10.0); %Neutrophils 58.8 % (42.0-75.0)
[2020-09-20 09:21] LABS: Hemoglobin 10.4 g/dL (12.0-16.0); Mean Corpuscular HGB CONC 30.5 g/dL (32.0-36.0); Mean Corpuscular Hemoglobin 18.8 pg (27.0-31.0); Mean Corpuscular Volume 61.5 fL (78.0-98.0); Mean Platelet Volume 7.3 fL (7.4-10.4); Platelet Count 244 thou/uL (130-400); RBC Distribution Width 19.2 % (11.5-14.5); Red Blood Cell (RBC) Count 5.55 mill/uL (4.20-5.40)
[2020-09-20] MEDS ORDERED: Fentanyl 100 MCG/2 ML VIAL ONE (09:21)
[2020-09-20 09:43] LABS: Bilirubin Negative (Negative); Blood, Urine Negative (Negative); Clarity Turbid (Clear); Glucose, Urine (Dipstick) Normal (Negative); Ketone, Urine Negative (Negative); Leukocyte Negative Leu/uL (Negative); Nitrite Negative (Negative); Protein, Urine (Dipstick) 70 mg/dL (Neg-Trace); RBC/HPF 0-3 HPF (0-3); Specific Gravity, Urine 1.027 (1.002-1.036); Urobilinogen 3 mg/dL (Less than 2); WBC/HPF 0-3 HPF (0-3)
[2020-09-20 09:44] LABS: Bacteria/HPF 1+ HPF (None Seen)
[2020-09-20 09:51] LABS: ALT (SGPT) 15 U/L (8-55); AST (SGOT) 29 U/L (5-34); Albumin 3.9 g/dL (3.5-5.0); Alkaline Phosphatase 109 U/L (40-110); Anion Gap 14 mmol/L (10-20); BUN (Urea Nitrogen) 18 mg/dL (7.0-18.7); Calc. Creatinine Clearance 0 mL/min (70-130); Calcium 8.9 mg/dL (7.8-10.44); Carbon Dioxide 23 mmol/L (22-29); Chloride 108 mmol/L (98-107); Globulin 3.5 g/dL (2.4-3.5); Glucose 111 mg/dL (70-105); Lipase 19 U/L (8-78); Potassium 3.7 mmol/L (3.5-5.1); Protein, Total 7.4 g/dL (6.0-8.3); Sodium 141 mmol/L (136-145)
[2020-09-20 09:52] LABS: Troponin I 0.017 ng/mL (< 0.028)
[2020-09-20 10:09] LABS: Hypochromia MODERATE=16-30 cells (100X) (0-5/hpf); MDiff Complete? YES; Microcytosis MODERATE=15-30 cells (100X) (0-5/hpf); Ovalocytes SLIGHT = 2-5 cells (100X) (0-1/hpf); Platelet Morphology Comment Appears Adequate; Polychromasia SLIGHT = 2-3 cells (100X) (0-2/hpf); Reflex for Review?? NO; Schistocytes SLIGHT = 2-5 cells (100X) (0-1/hpf)
[2020-09-20 10:40] LABS: Pregnancy Test - Urine (BHCG) Negative (Negative)
[2020-09-20 10:41] LABS: Pregu Control Background? CLEAR/WHITE (CLR/WHITE); Pregu Control Bar Appear? YES (CONTROL BAR); Specific Gravity 1.027 (1.002-1.036)
[2020-09-20] MEDS ORDERED: Iopamidol-370 76% 500 ML 1 ML ONE (11:37)
[2020-09-20] MEDS ORDERED: Furosemide 40 MG/4 ML VIAL ONE (12:03)
[2020-09-20] MEDS ORDERED: Ondansetron ODT 4 MG TAB PO PRN (13:35)
[2020-09-20] MEDS ORDERED: Ondansetron PF 4 MG/2 ML Vial IVP PRN (13:35)
[2020-09-20] MEDS ORDERED: Acetaminophen 325 MG TAB PO PRN (13:35)
[2020-09-20] MEDS ORDERED: Acetaminophen 650 MG Suppository PR PRN (13:35)
[2020-09-20] MEDS ORDERED: Enoxaparin Sodium 40 MG/0.4 ML SYRINGE SC SCH (13:45)
[2020-09-20] MEDS: Furosemide 40 MG/4 ML VIAL SLOW IVP SCH (14:00)
[2020-09-20 14:08] LABS: Prothrombin Time 23.2 sec (12.0-14.7)
[2020-09-20] MEDS: Carvedilol 6.25 MG TAB PO SCH (17:46)
[2020-09-20] MEDS: Spironolactone 25 MG TAB PO SCH (17:46)
[2020-09-20 18:22] LABS: SARS-CoV-2 PCR by NAA Not Detected (NotDetected)
[2020-09-20] MEDS ORDERED: cloNIDine 0.1 MG TAB PO PRN (19:52)
[2020-09-20] MEDS: Famotidine 20 MG TAB PO SCH (21:34)
[2020-09-21] MEDS: Magnesium 2 GM/50 ML 2 GM in Premix Bag 1 BAG IVPB SCH ×2 (02:08→21:45)
[2020-09-21 05:13] LABS: INR-International Normal Ratio 2.1
[2020-09-21 05:25] LABS: Anion Gap 11 mmol/L (10-20); BUN (Urea Nitrogen) 16 mg/dL (7.0-18.7); Calc. Creatinine Clearance 125 mL/min (70-130); Calcium 8.3 mg/dL (7.8-10.44); Carbon Dioxide 26 mmol/L (22-29); Chloride 107 mmol/L (98-107); Glucose 97 mg/dL (70-105); Potassium 3.5 mmol/L (3.5-5.1); Sodium 140 mmol/L (136-145)
[2020-09-21 05:28] LABS: #Basophils 0.1 thou/uL (0.0-0.2); #Eosinphils 0.2 thou/uL (0.0-0.7); #Lymphocytes 1.8 thou/uL (1.20-3.40); #Monocytes 0.7 thou/uL (0.11-0.59); #Neutrophils 3.1 thou/uL (1.40-6.50); %Basophils 0.9 % (0.0-1.0); %Eosinophils 2.8 % (0.0-10.0); %Monocytes 12.4 % (0.0-10.0); %Neutrophils 52.8 % (42.0-75.0); Anisocytosis SLIGHT = 6-15 cells (100X) (0-5/hpf); Elliptocytes SLIGHT = 2-5 cells (100X) (0-1/hpf); Hemoglobin 9.4 g/dL (12.0-16.0); Hypochromia MODERATE=16-30 cells (100X) (0-5/hpf); MDiff Complete? YES; Mean Corpuscular HGB CONC 29.6 g/dL (32.0-36.0); Mean Corpuscular Hemoglobin 18.3 pg (27.0-31.0); Mean Corpuscular Volume 61.9 fL (78.0-98.0); Mean Platelet Volume 6.9 fL (7.4-10.4); Microcytosis MODERATE=15-30 cells (100X) (0-5/hpf); Platelet Count 185 thou/uL (130-400); RBC Distribution Width 18.5 % (11.5-14.5); Target Cells SLIGHT = 2-5 cells (100X) (0-1/hpf); Tear Drops SLIGHT = 2-5 cells (100X) (0-1/hpf); White Blood Cell (WBC) Count 5.9 thou/uL (4.8-10.8)
[2020-09-21] MEDS: Furosemide 40 MG/4 ML VIAL SLOW IVP SCH ×2 (06:18→13:43)
[2020-09-21] MEDS: Famotidine 20 MG TAB PO SCH ×2 (08:53→20:52)
[2020-09-21] MEDS: Carvedilol 6.25 MG TAB PO SCH (08:54)
[2020-09-21] MEDS: Aspirin Chewable 81 MG TAB PO SCH (08:55)
[2020-09-21] MEDS: Lisinopril 5 MG TAB PO SCH ×2 (08:55→20:51)
[2020-09-21] MEDS: Spironolactone 25 MG TAB PO SCH ×2 (08:55→17:16)
[2020-09-21] MEDS ORDERED: Enoxaparin Sodium 40 MG/0.4 ML SYRINGE SC SCH (09:00)
[2020-09-21] MEDS ORDERED: Metoprolol Tartrate 50 MG TAB PO SCH (09:00)
[2020-09-21] MEDS: Warfarin Sodium 5 MG TAB PO SCH (17:17)
[2020-09-21] MEDS: Metoprolol Tartrate 25 MG TAB PO SCH (20:56)
[2020-09-22] MEDS: Furosemide 40 MG/4 ML VIAL SLOW IVP SCH ×2 (05:34→14:30)
[2020-09-22] MEDS: Lisinopril 5 MG TAB PO SCH ×2 (08:44→21:47)
[2020-09-22] MEDS: Spironolactone 25 MG TAB PO SCH ×2 (08:44→18:19)
[2020-09-22] MEDS: Famotidine 20 MG TAB PO SCH ×2 (08:45→21:47)
[2020-09-22] MEDS: Aspirin Chewable 81 MG TAB PO SCH (08:45)
[2020-09-22] MEDS: Metoprolol Tartrate 25 MG TAB PO SCH ×2 (08:45→21:47)
[2020-09-22 10:30] LABS: INR-International Normal Ratio 1.7; Prothrombin Time 19.9 sec (12.0-14.7)
[2020-09-22 13:00] VITALS: BMI 22.7
[2020-09-22] MEDS ORDERED: Warfarin Sodium 5 MG TAB PO SCH (17:00)
[2020-09-22] MEDS: Warfarin Sodium 5 MG TAB PO SCH (18:19)
[2020-09-23 04:53] LABS: INR-International Normal Ratio 1.8; Prothrombin Time 21.4 sec (12.0-14.7)
[2020-09-23] MEDS: Furosemide 40 MG/4 ML VIAL SLOW IVP SCH (05:54)
[2020-09-23 09:26] VITALS: TEMP 97.8
[2020-09-23] MEDS: Famotidine 20 MG TAB PO SCH (09:26)
[2020-09-23] MEDS: Aspirin Chewable 81 MG TAB PO SCH (09:26)
[2020-09-23] MEDS: Lisinopril 5 MG TAB PO SCH (10:24)
[2020-09-23] MEDS: Metoprolol Tartrate 25 MG TAB PO SCH (10:24)
[2020-09-23] MEDS: Spironolactone 25 MG TAB PO SCH (10:25)
[2020-09-23 14:17] VITALS: BP 125/56
== END 2020-09-23 14:05 | disposition home or self-care (01) | DRG 291 ==
LOC: ERS 07:38 → OBSVTOIN 12:57 → ERHOLD 12:57 → 2SW 16:24 → IMCU/EMU 09-21 14:48 → 2NO 09-22 16:31
PROVIDERS: ADMIT Hospitalist; ATTEND Internal Medicine
DX: I11.0 Hypertensive heart disease with heart failure (principal); J96.01 Acute respiratory failure with hypoxia; I50.23 Acute on chronic systolic (congestive) heart failure; I42.9 Cardiomyopathy, unspecified; E78.5 Hyperlipidemia, unspecified; I25.10 Atherosclerotic heart disease of native coronary artery without angina pectoris; Z95.1 Presence of aortocoronary bypass graft; Z79.01 Long term (current) use of anticoagulants; Z88.0 Allergy status to penicillin; Z88.5 Allergy status to narcotic agent; Z79.82 Long term (current) use of aspirin; K57.90 Diverticulosis of intestine, part unspecified, without perforation or abscess without bleeding; Z95.2 Presence of prosthetic heart valve; F98.8 Other specified behavioral and emotional disorders with onset usually occurring in childhood and adolescence; I48.0 Paroxysmal atrial fibrillation; R00.1 Bradycardia, unspecified
CPT/HCPCS: 36415; 71045; 74177; 80048; 81001; 81025; 83690; 83735; 83880; 84443; 84484; 85025; 85610; 87635; 93005; 96365; 96374; 96375; 96376; G0378; J1940; J2405; J3010; J3475; Q9967; U0003; U0005

== ENCOUNTER 2021-03-29 23:59 | Inpatient (IN) | payer OTHER ==
[2021-03-30 02:09] LABS: Hemoglobin 10.9 g/dL (12.0-16.0); Mean Corpuscular HGB CONC 31.4 g/dL (32.0-36.0); Mean Corpuscular Hemoglobin 19.9 pg (27.0-31.0); Mean Corpuscular Volume 63.2 fL (78.0-98.0); Mean Platelet Volume 7.3 fL (7.4-10.4); Platelet Count 235 thou/uL (130-400); RBC Distribution Width 20.2 % (11.5-14.5); Red Blood Cell (RBC) Count 5.47 mill/uL (4.20-5.40); White Blood Cell (WBC) Count 6.9 thou/uL (4.8-10.8)
[2021-03-30 02:32] LABS: Troponin I 0.023 ng/mL (< 0.028)
[2021-03-30 02:34] LABS: Anion Gap 16 mmol/L (10-20); BUN (Urea Nitrogen) 14 mg/dL (7.0-18.7); Calc. Creatinine Clearance 118 mL/min (70-130); Calcium 9.8 mg/dL (7.8-10.44); Carbon Dioxide 23 mmol/L (22-29); Chloride 109 mmol/L (98-107); Glucose 112 mg/dL (70-105); Potassium 3.3 mmol/L (3.5-5.1); Sodium 145 mmol/L (136-145)
[2021-03-30 02:37] LABS: #Basophils 0.1 thou/uL (0.0-0.2); #Eosinphils 0.1 thou/uL (0.0-0.7); #Lymphocytes 2.2 thou/uL (1.20-3.40); #Monocytes 0.9 thou/uL (0.11-0.59); #Neutrophils 3.7 thou/uL (1.40-6.50); %Eosinophils 2.1 % (0.0-10.0); %Lymphocytes 31.3 % (21.0-51.0); %Monocytes 12.9 % (0.0-10.0); %Neutrophils 52.7 % (42.0-75.0); Anisocytosis MODERATE=16-30 cells (100X) (0-5/hpf); Elliptocytes MODERATE= 6-15 cells (100X) (0-1/hpf); Hypochromia MODERATE=16-30 cells (100X) (0-5/hpf); MDiff Complete? YES; Microcytosis MODERATE=15-30 cells (100X) (0-5/hpf); Platelet Morphology Comment Appears Adequate; Polychromasia SLIGHT = 2-3 cells (100X) (0-2/hpf); Schistocytes SLIGHT = 2-5 cells (100X) (0-1/hpf); Target Cells MODERATE= 6-15 cells (100X) (0-1/hpf); Tear Drops SLIGHT = 2-5 cells (100X) (0-1/hpf)
[2021-03-30] MEDS: Furosemide 40 MG/4 ML VIAL SLOW IVP SCH ×2 (06:06→15:32)
[2021-03-30] MEDS ORDERED: Carvedilol 6.25 MG TAB PO SCH ×2 (09:00→17:00)
[2021-03-30 12:05] LABS: SARS-CoV-2 PCR by NAA Not Detected (NotDetected)
[2021-03-30] MEDS: Carvedilol 25 MG TAB PO SCH (18:48)
[2021-03-31] MEDS: Furosemide 40 MG/4 ML VIAL SLOW IVP SCH ×2 (05:26→18:13)
[2021-03-31 05:43] LABS: Hemoglobin 10.4 g/dL (12.0-16.0); Mean Corpuscular HGB CONC 31.9 g/dL (32.0-36.0); Mean Corpuscular Hemoglobin 20.2 pg (27.0-31.0); Mean Corpuscular Volume 63.4 fL (78.0-98.0); Mean Platelet Volume 9.5 fL (7.4-10.4); Platelet Count 224 thou/uL (130-400); RBC Distribution Width 19.6 % (11.5-14.5); Red Blood Cell (RBC) Count 5.12 mill/uL (4.20-5.40); White Blood Cell (WBC) Count 6.8 thou/uL (4.8-10.8)
[2021-03-31 07:00] LABS: Band 2 % (5-11); Elliptocytes SLIGHT = 2-5 cells (100X) (0-1/hpf); Eosinophils 1 % (0-10); Hypochromia MODERATE=16-30 cells (100X) (0-5/hpf); Lymphocytes 32 % (21-51); MDiff Complete? YES; Monocytes 7 % (0-10); Neutrophil 58 % (42-75); Platelet Morphology Comment Appears Adequate; Poikilocytosis SLIGHT = 6-15 cells (100X) (0-5/hpf); Target Cells MODERATE= 6-15 cells (100X) (0-1/hpf); Tear Drops SLIGHT = 2-5 cells (100X) (0-1/hpf)
[2021-03-31] MEDS: Aspirin 81 mg Enteric Coated Tablet PO SCH (08:29)
[2021-03-31] MEDS: Carvedilol 25 MG TAB PO SCH ×2 (08:29→18:13)
[2021-03-31] MEDS ORDERED: FLU VACC QS2021-22(6MOS UP)/PF 60 MCG/0.5 ML SYRINGE IM ONE (09:00)
[2021-03-31 11:45] LABS: ALT (SGPT) 18 U/L (8-55); AST (SGOT) 39 U/L (5-34); Albumin 3.7 g/dL (3.5-5.0); Alkaline Phosphatase 157 U/L (40-110); Anion Gap 18 mmol/L (10-20); BUN (Urea Nitrogen) 16 mg/dL (7.0-18.7); Bilirubin, Total 4.1 mg/dL (0.2-1.2); Calc. Creatinine Clearance 86 mL/min (70-130); Calcium 9.2 mg/dL (7.8-10.44); Carbon Dioxide 26 mmol/L (22-29); Chloride 100 mmol/L (98-107); Globulin 3.5 g/dL (2.4-3.5); Glucose 146 mg/dL (70-105); Potassium 3.2 mmol/L (3.5-5.1); Protein, Total 7.2 g/dL (6.0-8.3); Sodium 141 mmol/L (136-145)
[2021-03-31] MEDS: Acetaminophen 325 MG TAB PO PRN (13:25)
[2021-03-31] MEDS ORDERED: Ondansetron ODT 4 MG TAB PO PRN (13:35)
[2021-03-31] MEDS ORDERED: Warfarin Sodium 5 MG TAB PO SCH (17:00)
[2021-03-31] MEDS ORDERED: Communication Order-Pharmacy FS ONE (17:23)
[2021-03-31 17:51] LABS: Hemoglobin 12.1 g/dL (12.0-16.0); Platelet Count 263 thou/uL (130-400)
[2021-03-31] MEDS ORDERED: Potassium Chloride 40 MEQ in Sodium Chloride 0.9% 250 ML 250 ML IVPB SCH (18:30)
[2021-03-31] MEDS ORDERED: Sodium Chloride 0.9% 250 ML IV SCH (19:45)
[2021-03-31 19:58] LABS: Hemoglobin 12.2 g/dL (12.0-16.0); Mean Corpuscular HGB CONC 31.1 g/dL (32.0-36.0); Mean Corpuscular Hemoglobin 19.9 pg (27.0-31.0); Mean Platelet Volume 7.2 fL (7.4-10.4); Platelet Count 260 thou/uL (130-400); RBC Distribution Width 20.9 % (11.5-14.5); Red Blood Cell (RBC) Count 6.15 mill/uL (4.20-5.40)
[2021-03-31 20:11] LABS: Anion Gap 17 mmol/L (10-20); BUN (Urea Nitrogen) 21 mg/dL (7.0-18.7); Calc. Creatinine Clearance 60 mL/min (70-130); Calcium 8.8 mg/dL (7.8-10.44); Carbon Dioxide 26 mmol/L (22-29); Chloride 100 mmol/L (98-107); Glucose 125 mg/dL (70-105); Potassium 3.3 mmol/L (3.5-5.1); Sodium 140 mmol/L (136-145)
[2021-03-31 20:24] LABS: Anisocytosis MODERATE=16-30 cells (100X) (0-5/hpf); Elliptocytes SLIGHT = 2-5 cells (100X) (0-1/hpf); Hypochromia MODERATE=16-30 cells (100X) (0-5/hpf); Lymphocytes 28 % (21-51); MDiff Complete? YES; Microcytosis MODERATE=15-30 cells (100X) (0-5/hpf); Monocytes 16 % (0-10); Neutrophil 56 % (42-75); Schistocytes SLIGHT = 2-5 cells (100X) (0-1/hpf); Target Cells SLIGHT = 2-5 cells (100X) (0-1/hpf); Tear Drops SLIGHT = 2-5 cells (100X) (0-1/hpf); White Blood Cell (WBC) Count 7.9 thou/uL (4.8-10.8)
[2021-03-31] MEDS ORDERED: Potassium Chloride 20 MEQ TAB PO SCH (21:00)
[2021-03-31] MEDS ORDERED: Potassium Chloride 10 MEQ TAB PO SCH (21:30)
[2021-03-31] MEDS ORDERED: Potassium Bicarbonate/Cit Ac 20 MEQ TAB PO SCH (22:15)
[2021-03-31] MEDS: Enoxaparin Sodium 100 MG/ML SYRINGE SC SCH (22:34)
[2021-04-01 05:01] LABS: INR-International Normal Ratio 1.9; Prothrombin Time 21.8 sec (12.0-14.7)
[2021-04-01] MEDS: Furosemide 40 MG/4 ML VIAL SLOW IVP SCH (05:02)
[2021-04-01 06:05] LABS: ALT (SGPT) 19 U/L (8-55); AST (SGOT) 34 U/L (5-34); Albumin 3.3 g/dL (3.5-5.0); Alkaline Phosphatase 142 U/L (40-110); Anion Gap 15 mmol/L (10-20); BUN (Urea Nitrogen) 24 mg/dL (7.0-18.7); Bilirubin, Total 3.1 mg/dL (0.2-1.2); Calc. Creatinine Clearance 84 mL/min (70-130); Calcium 8.9 mg/dL (7.8-10.44); Carbon Dioxide 28 mmol/L (22-29); Chloride 100 mmol/L (98-107); Globulin 3.2 g/dL (2.4-3.5); Glucose 107 mg/dL (70-105); Protein, Total 6.5 g/dL (6.0-8.3); Sodium 140 mmol/L (136-145)
[2021-04-01 06:14] LABS: Potassium 2.9 mmol/L (3.5-5.1)
[2021-04-01] MEDS ORDERED: Potassium Chloride 40 MEQ in Premix Bag 1 BAG IVPB SCH (08:00)
[2021-04-01] MEDS: Aspirin 81 mg Enteric Coated Tablet PO SCH (08:54)
[2021-04-01] MEDS: Enoxaparin Sodium 100 MG/ML SYRINGE SC SCH ×2 (08:55→21:29)
[2021-04-01] MEDS ORDERED: Potassium Bicarbonate/Cit Ac 20 MEQ TAB PO SCH (12:00)
[2021-04-01] MEDS: Carvedilol 3.125 MG TAB PO SCH ×2 (12:30→16:09)
[2021-04-01] MEDS ORDERED: Warfarin Sodium 10 MG TAB PO SCH (17:00)
[2021-04-01 17:08] LABS: Potassium 3.2 mmol/L (3.5-5.1)
[2021-04-01] MEDS ORDERED: Potassium Chloride 20 MEQ in Premix Bag 1 BAG IVPB SCH (22:15)
[2021-04-02 05:34] LABS: INR-International Normal Ratio 1.5; Prothrombin Time 18.6 sec (12.0-14.7)
[2021-04-02 05:35] LABS: PTT 61.5 sec (22.9-36.1)
[2021-04-02 08:19] LABS: Hemoglobin 12.3 g/dL (12.0-16.0); Mean Corpuscular HGB CONC 30.8 g/dL (32.0-36.0); Mean Corpuscular Hemoglobin 19.4 pg (27.0-31.0); Mean Corpuscular Volume 62.9 fL (78.0-98.0); Platelet Count 238 thou/uL (130-400); RBC Distribution Width 19.9 % (11.5-14.5); Red Blood Cell (RBC) Count 6.34 mill/uL (4.20-5.40); White Blood Cell (WBC) Count 5.7 thou/uL (4.8-10.8)
[2021-04-02 08:38] LABS: MDiff Complete? YES
[2021-04-02 08:39] LABS: Elliptocytes SLIGHT = 2-5 cells (100X) (0-1/hpf); Eosinophils 5 % (0-10); Hypochromia MODERATE=16-30 cells (100X) (0-5/hpf); Lymphocytes 44 % (21-51); Microcytosis MARKED = >30 cells (100X) (0-5/hpf); Monocytes 10 % (0-10); Neutrophil 41 % (42-75); Ovalocytes MODERATE= 6-15 cells (100X) (0-1/hpf); Platelet Morphology Comment Appears Adequate; Polychromasia SLIGHT = 2-3 cells (100X) (0-2/hpf); Target Cells SLIGHT = 2-5 cells (100X) (0-1/hpf); Tear Drops SLIGHT = 2-5 cells (100X) (0-1/hpf)
[2021-04-02 08:42] LABS: Chloride 103 mmol/L (98-107); Potassium 3.6 mmol/L (3.5-5.1); Sodium 138 mmol/L (136-145)
[2021-04-02 08:43] LABS: Calcium 8.8 mg/dL (7.8-10.44); Glucose 103 mg/dL (70-105)
[2021-04-02 08:45] LABS: Carbon Dioxide 26 mmol/L (22-29)
[2021-04-02 08:47] LABS: BUN (Urea Nitrogen) 21 mg/dL (7.0-18.7); Calc. Creatinine Clearance 126 mL/min (70-130)
[2021-04-02 08:51] LABS: Anion Gap 13 mmol/L (10-20)
[2021-04-02] MEDS: Aspirin 81 mg Enteric Coated Tablet PO SCH (09:05)
[2021-04-02] MEDS: Carvedilol 3.125 MG TAB PO SCH ×2 (09:06→19:34)
[2021-04-02] MEDS: Enoxaparin Sodium 100 MG/ML SYRINGE SC SCH (09:06)
[2021-04-02] MEDS ORDERED: Fentanyl 100 MCG/2 ML VIAL ONE ×2 (13:35→15:54)
[2021-04-02] MEDS ORDERED: Midazolam HCl 2 mg/2 ml Vial ONE (13:35)
[2021-04-02] MEDS ORDERED: Bupivacaine 0.25% HCL 30 ML VIAL ONE (14:24)
[2021-04-02] MEDS ORDERED: Lidocaine 1% w/Epinephrine 1:100K 20 ML VIAL ONE (14:24)
[2021-04-02] MEDS ORDERED: Iothalamate Meglumine 60% 50 ML VIAL FS ONE (15:04)
[2021-04-02] MEDS ORDERED: Glycopyrrolate 0.2 MG/ML 5 ML SYRINGE ONE (15:24)
[2021-04-02] MEDS ORDERED: ePHEDrine 50 MG/ML VIAL ONE (15:24)
[2021-04-02] MEDS ORDERED: Esmolol 100 MG/10 ML VIAL ONE (15:24)
[2021-04-02] MEDS ORDERED: Rocuronium Bromide 10 MG/ML (10ML VIAL) ONE (15:24)
[2021-04-02] MEDS ORDERED: PROPOFOL 200 MG/20 ML VIAL ONE (15:24)
[2021-04-02] MEDS ORDERED: Lidocaine 1% PF 5 ML VIAL ONE (15:24)
[2021-04-02] MEDS ORDERED: Ondansetron PF 4 MG/2 ML Vial ONE (15:24)
[2021-04-02] MEDS ORDERED: PHENYLEPHRINE-NS 100 MCG/ML 10 ML SYRINGE ONE (15:24)
[2021-04-02] MEDS ORDERED: Calcium Chloride 1 GM/10 ML Abboject SYRINGE ONE (15:24)
[2021-04-02] MEDS ORDERED: Dexamethasone 20 MG/5 ML VIAL ONE (15:24)
[2021-04-02] MEDS ORDERED: HYDROmorphone 0.5 MG/0.5 ML SYRINGE ONE (15:54)
[2021-04-02] MEDS ORDERED: Phenylephrine 10 MG/ML VIAL ONE (15:54)
[2021-04-02] MEDS ORDERED: HYDROcodone/Acetaminophen 7.5/325 mg Tablet PO PRN ×2 (18:28)
[2021-04-02] MEDS ORDERED: Warfarin Sodium 5 MG TAB PO SCH (20:00)
[2021-04-02] MEDS: Sodium Chloride 0.9% 1,000 ML IV SCH (20:56)
[2021-04-02] MEDS ORDERED: Enoxaparin Sodium 40 MG/0.4 ML SYRINGE SC SCH (21:00)
[2021-04-03] MEDS: Acetaminophen 325 MG TAB PO PRN (04:33)
[2021-04-03 05:17] LABS: #Monocytes 0.3 thou/uL (0.11-0.59); #Neutrophils 7.5 thou/uL (1.40-6.50); %Basophils 0.4 % (0.0-1.0); %Lymphocytes 11.7 % (21.0-51.0); %Monocytes 3.1 % (0.0-10.0); %Neutrophils 84.8 % (42.0-75.0); Hemoglobin 13.1 g/dL (12.0-16.0); Mean Corpuscular HGB CONC 29.9 g/dL (32.0-36.0); Mean Corpuscular Hemoglobin 19.2 pg (27.0-31.0); Mean Corpuscular Volume 64.2 fL (78.0-98.0); Mean Platelet Volume 7.3 fL (7.4-10.4); Platelet Count 242 thou/uL (130-400); RBC Distribution Width 19.6 % (11.5-14.5); Red Blood Cell (RBC) Count 6.84 mill/uL (4.20-5.40); White Blood Cell (WBC) Count 8.8 thou/uL (4.8-10.8)
[2021-04-03 05:24] LABS: INR-International Normal Ratio 1.2; PTT 42.8 sec (22.9-36.1); Prothrombin Time 15.4 sec (12.0-14.7)
[2021-04-03 05:40] LABS: ALT (SGPT) 37 U/L (8-55); AST (SGOT) 86 U/L (5-34); Albumin 3.4 g/dL (3.5-5.0); Alkaline Phosphatase 140 U/L (40-110); Anion Gap 14 mmol/L (10-20); BUN (Urea Nitrogen) 21 mg/dL (7.0-18.7); Bilirubin, Total 2.5 mg/dL (0.2-1.2); Calc. Creatinine Clearance 115 mL/min (70-130); Carbon Dioxide 23 mmol/L (22-29); Chloride 104 mmol/L (98-107); Globulin 3.3 g/dL (2.4-3.5); Glucose 135 mg/dL (70-105); Lipase 35 U/L (8-78); Potassium 4.6 mmol/L (3.5-5.1); Protein, Total 6.7 g/dL (6.0-8.3); Sodium 136 mmol/L (136-145)
[2021-04-03] MEDS ORDERED: Heparin 25,000 units/D5W 500 ML IVPB SCH (08:45)
[2021-04-03 10:07] LABS: Platelet Count 257 thou/uL (130-400)
[2021-04-03] MEDS: Carvedilol 3.125 MG TAB PO SCH ×2 (10:25→15:59)
[2021-04-03] MEDS: Aspirin 81 mg Enteric Coated Tablet PO SCH (10:25)
[2021-04-03 10:40] LABS: HBCM Index 0.08 S/CO (0-0.79); HBSAg Index 0.31 S/CO (0-0.99); Hep A IgM AB Non-Reactive (NonReactive); Hep A IgM S/CO 0.15 S/CO (0-0.79); Hep B Surf Ag Non-Reactive S/CO (NonReactive); Hep C IgG Ab Non-Reactive (NonReactive); Hepatitis B Core IgM Abs Non-Reactive (NonReactive)
[2021-04-03] MEDS: Sodium Chloride 0.9% 1,000 ML IV SCH (15:57)
[2021-04-03] MEDS: Warfarin Sodium 5 MG TAB PO SCH (15:59)
[2021-04-03 16:48] LABS: PTT 125.9 sec (22.9-36.1)
[2021-04-03 16:56] LABS: Troponin I 0.051 ng/mL (< 0.028)
[2021-04-03 20:58] LABS: Troponin I 0.034 ng/mL (< 0.028)
[2021-04-04] MEDS: Heparin 10,000 UNITS/ 10 ML VIAL SLOW IVP SCH (02:15)
[2021-04-04 08:29] LABS: Hemoglobin 10.6 g/dL (12.0-16.0); Mean Corpuscular HGB CONC 30.6 g/dL (32.0-36.0); Mean Corpuscular Hemoglobin 19.6 pg (27.0-31.0); Mean Corpuscular Volume 63.9 fL (78.0-98.0); Mean Platelet Volume 7.5 fL (7.4-10.4); Platelet Count 162 thou/uL (130-400); Red Blood Cell (RBC) Count 5.41 mill/uL (4.20-5.40); White Blood Cell (WBC) Count 9.2 thou/uL (4.8-10.8)
[2021-04-04 08:30] LABS: #Eosinphils 0.4 thou/uL (0.0-0.7); #Lymphocytes 1.6 thou/uL (1.20-3.40); #Monocytes 1.1 thou/uL (0.11-0.59); #Neutrophils 6.1 thou/uL (1.40-6.50); %Basophils 0.3 % (0.0-1.0); %Eosinophils 4.2 % (0.0-10.0); %Lymphocytes 17.7 % (21.0-51.0); %Monocytes 11.7 % (0.0-10.0); %Neutrophils 66.1 % (42.0-75.0)
[2021-04-04 08:36] LABS: INR-International Normal Ratio 1.6
[2021-04-04 08:44] LABS: Anion Gap 11 mmol/L (10-20); BUN (Urea Nitrogen) 17 mg/dL (7.0-18.7); Calc. Creatinine Clearance 136 mL/min (70-130); Carbon Dioxide 24 mmol/L (22-29); Chloride 105 mmol/L (98-107); Glucose 108 mg/dL (70-105); Potassium 3.7 mmol/L (3.5-5.1); Sodium 136 mmol/L (136-145)
[2021-04-04 08:56] LABS: Elliptocytes SLIGHT = 2-5 cells (100X) (0-1/hpf); Hypochromia MODERATE=16-30 cells (100X) (0-5/hpf); MDiff Complete? YES; Microcytosis MODERATE=15-30 cells (100X) (0-5/hpf); Ovalocytes MODERATE= 6-15 cells (100X) (0-1/hpf); Platelet Morphology Comment Appears Adequate; Polychromasia SLIGHT = 2-3 cells (100X) (0-2/hpf); Schistocytes SLIGHT = 2-5 cells (100X) (0-1/hpf)
[2021-04-04 09:25] LABS: PTT Greater than 250.0 sec (22.9-36.1)
[2021-04-04] MEDS: Carvedilol 3.125 MG TAB PO SCH ×2 (09:40→17:06)
[2021-04-04] MEDS: Aspirin 81 mg Enteric Coated Tablet PO SCH (09:40)
[2021-04-04] MEDS: Sodium Chloride 0.9% 1,000 ML IV SCH (11:18)
[2021-04-04] MEDS: Warfarin Sodium 5 MG TAB PO SCH (17:04)
[2021-04-05 05:28] LABS: INR-International Normal Ratio 1.5; Prothrombin Time 18.2 sec (12.0-14.7)
[2021-04-05 05:40] LABS: Iron 35 ug/dL (50-170); Iron Binding Capacity, Total 291 mcg/dL (265-497)
[2021-04-05] MEDS: Aspirin 81 mg Enteric Coated Tablet PO SCH (08:22)
[2021-04-05] MEDS: Carvedilol 3.125 MG TAB PO SCH ×3 (08:22→16:05)
[2021-04-05] MEDS: Sodium Chloride 0.9% 1,000 ML IV SCH (08:23)
[2021-04-05 08:48] LABS: Hemoglobin 9.7 g/dL (12.0-16.0); Platelet Count 144 thou/uL (130-400)
[2021-04-05] MEDS ORDERED: Ketamine 50 MG/ML (10ML VIAL) ONE (10:51)
[2021-04-05] MEDS ORDERED: Fentanyl 100 MCG/2 ML VIAL ONE (10:52)
[2021-04-05] MEDS ORDERED: Glycopyrrolate 0.2 MG/ML 5 ML SYRINGE ONE (10:59)
[2021-04-05] MEDS ORDERED: PROPOFOL 200 MG/20 ML VIAL ONE (10:59)
[2021-04-05] MEDS ORDERED: Lidocaine 1% PF 5 ML VIAL ONE (10:59)
[2021-04-05] MEDS ORDERED: PHENYLEPHRINE-NS 100 MCG/ML 10 ML SYRINGE ONE (11:17)
[2021-04-05] MEDS ORDERED: GoLYTELY 4,000 ml Bottle PO SCH (11:30)
[2021-04-05] MEDS ORDERED: traMADol HCl 50 MG TAB PO PRN (13:49)
[2021-04-05 16:32] LABS: Hemoglobin 10.2 g/dL (12.0-16.0); Platelet Count 161 thou/uL (130-400)
[2021-04-05] MEDS ORDERED: Warfarin Sodium 10 MG TAB PO SCH ×2 (17:00→20:00)
[2021-04-05] MEDS ORDERED: Heparin 25,000 units/D5W 500 ML IVPB SCH (20:15)
[2021-04-05] MEDS: Heparin 10,000 UNITS/ 10 ML VIAL SLOW IVP SCH (21:15)
[2021-04-06 03:17] LABS: Hemoglobin 8.8 g/dL (12.0-16.0); Platelet Count 132 thou/uL (130-400)
[2021-04-06 03:38] LABS: PTT Greater than 250.0 sec (22.9-36.1)
[2021-04-06] MEDS: Sodium Chloride 0.9% 1,000 ML IV SCH ×2 (05:02→23:30)
[2021-04-06 06:41] LABS: INR-International Normal Ratio 1.6
[2021-04-06 06:42] LABS: PTT 74.5 sec (22.9-36.1)
[2021-04-06] MEDS: Carvedilol 3.125 MG TAB PO SCH ×2 (09:44→16:39)
[2021-04-06] MEDS: Aspirin 81 mg Enteric Coated Tablet PO SCH (09:44)
[2021-04-06] MEDS ORDERED: Warfarin Sodium 5 MG TAB PO SCH ×2 (17:00)
[2021-04-07 01:58] LABS: Hemoglobin 9.2 g/dL (12.0-16.0); Mean Corpuscular HGB CONC 32.4 g/dL (32.0-36.0); Mean Corpuscular Hemoglobin 20.4 pg (27.0-31.0); Mean Corpuscular Volume 62.9 fL (78.0-98.0); Mean Platelet Volume 8.4 fL (7.4-10.4); Platelet Count 144 thou/uL (130-400); RBC Distribution Width 19.5 % (11.5-14.5); Red Blood Cell (RBC) Count 4.53 mill/uL (4.20-5.40); White Blood Cell (WBC) Count 5.7 thou/uL (4.8-10.8)
[2021-04-07 02:10] LABS: INR-International Normal Ratio 1.7; Prothrombin Time 20.3 sec (12.0-14.7)
[2021-04-07 02:30] LABS: PTT 121.3 sec (22.9-36.1)
[2021-04-07 02:34] LABS: ALT (SGPT) 27 U/L (8-55); AST (SGOT) 33 U/L (5-34); Alkaline Phosphatase 149 U/L (40-110); Anion Gap 13 mmol/L (10-20); Anisocytosis SLIGHT = 6-15 cells (100X) (0-5/hpf); BUN (Urea Nitrogen) 12 mg/dL (7.0-18.7); Bilirubin, Total 1.7 mg/dL (0.2-1.2); Calc. Creatinine Clearance 135 mL/min (70-130); Calcium 8.9 mg/dL (7.8-10.44); Carbon Dioxide 19 mmol/L (22-29); Chloride 108 mmol/L (98-107); Elliptocytes SLIGHT = 2-5 cells (100X) (0-1/hpf); Eosinophils 5 % (0-10); Globulin 3.3 g/dL (2.4-3.5); Glucose 113 mg/dL (70-105); Hypochromia SLIGHT = 6-15 cells (100X) (0-5/hpf); Large Platelets SLIGHT; Lymphocytes 22 % (21-51); MDiff Complete? YES; Microcytosis SLIGHT = 6-15 cells (100X) (0-5/hpf); Monocytes 9 % (0-10); Neutrophil 64 % (42-75); Platelet Morphology Comment Appears Adequate; Polychromasia SLIGHT = 2-3 cells (100X) (0-2/hpf); Potassium 3.6 mmol/L (3.5-5.1); Protein, Total 6.3 g/dL (6.0-8.3); Schistocytes SLIGHT = 2-5 cells (100X) (0-1/hpf); Sodium 136 mmol/L (136-145); Target Cells SLIGHT = 2-5 cells (100X) (0-1/hpf); Tear Drops SLIGHT = 2-5 cells (100X) (0-1/hpf)
[2021-04-07] MEDS: Sodium Chloride 0.9% 1,000 ML IV SCH ×2 (02:45→23:09)
[2021-04-07] MEDS: Carvedilol 3.125 MG TAB PO SCH ×2 (09:58→17:39)
[2021-04-07] MEDS: Aspirin 81 mg Enteric Coated Tablet PO SCH (09:58)
[2021-04-07 09:59] LABS: Hemoglobin 9.4 g/dL (12.0-16.0); Platelet Count 136 thou/uL (130-400)
[2021-04-07] MEDS ORDERED: Warfarin Sodium 10 MG TAB PO SCH (17:00)
[2021-04-07] MEDS: Warfarin Sodium 10 MG TAB PO SCH (17:39)
[2021-04-07] MEDS: Enoxaparin Sodium 100 MG/ML SYRINGE SC SCH (21:14)
[2021-04-07] MEDS: Ondansetron PF 4 MG/2 ML Vial IVP PRN (23:10)
[2021-04-08] MEDS: Aspirin 81 mg Enteric Coated Tablet PO SCH (10:13)
[2021-04-08] MEDS: Enoxaparin Sodium 100 MG/ML SYRINGE SC SCH ×2 (10:13→22:17)
[2021-04-08] MEDS: Carvedilol 3.125 MG TAB PO SCH ×3 (10:14→18:31)
[2021-04-08 10:54] LABS: INR-International Normal Ratio 1.9
[2021-04-08 15:23] LABS: ANA Symphony (Qualitative) Negative (Negative); ANA Symphony (Quantitative) 0.2 Ratio (< 0.7 Negative); EliA Vaculitis New Method **** NEW METHOD ****; Mitochondrial Ab 0.8 U/mL (<4 Negative); dsDNA IgG Antibody 0.6 IU/mL (<10 Negative)
[2021-04-08] MEDS: Ondansetron PF 4 MG/2 ML Vial IVP PRN ×2 (16:12→22:54)
[2021-04-08] MEDS ORDERED: Warfarin Sodium 10 MG TAB PO SCH (17:00)
[2021-04-08] MEDS: Warfarin Sodium 10 MG TAB PO SCH (17:54)
[2021-04-08] MEDS: Sacubitril 49 MG/Valsartan 51 MG TABLET PO SCH (22:19)
[2021-04-09 04:35] LABS: Hemoglobin 9.8 g/dL (12.0-16.0); Platelet Count 146 thou/uL (130-400)
[2021-04-09 04:48] LABS: INR-International Normal Ratio 2.1
[2021-04-09] MEDS: Enoxaparin Sodium 100 MG/ML SYRINGE SC SCH ×2 (09:21→20:12)
[2021-04-09] MEDS: Aspirin 81 mg Enteric Coated Tablet PO SCH (09:21)
[2021-04-09] MEDS: Carvedilol 3.125 MG TAB PO SCH ×2 (09:24→16:08)
[2021-04-09] MEDS ORDERED: Carvedilol 3.125 MG TAB PO SCH (09:30)
[2021-04-09] MEDS ORDERED: Sacubitril 49 MG/Valsartan 51 MG TABLET PO SCH ×2 (10:15→21:00)
[2021-04-09] MEDS: Sacubitril 49 MG/Valsartan 51 MG TABLET PO SCH (10:43)
[2021-04-09 13:34] VITALS: BMI 36.1
[2021-04-09] MEDS: Warfarin Sodium 10 MG TAB PO SCH (16:08)
[2021-04-09 16:35] LABS: Platelet Count 160 thou/uL (130-400)
[2021-04-09] MEDS ORDERED: Warfarin Sodium 2.5 MG TAB PO SCH (17:00)
[2021-04-09] MEDS ORDERED: metroNIDAZOLE 500 MG TAB PO SCH (21:00)
[2021-04-09] MEDS ORDERED: Clarithromycin 500 MG TAB PO SCH (21:00)
[2021-04-10 09:01] LABS: #Basophils 0.1 thou/uL (0.0-0.2); #Eosinphils 0.5 thou/uL (0.0-0.7); #Lymphocytes 1.9 thou/uL (1.20-3.40); #Monocytes 0.9 thou/uL (0.11-0.59); #Neutrophils 3.8 thou/uL (1.40-6.50); %Basophils 0.8 % (0.0-1.0); %Lymphocytes 26.6 % (21.0-51.0); %Monocytes 12.9 % (0.0-10.0); %Neutrophils 52.8 % (42.0-75.0); Hemoglobin 9.8 g/dL (12.0-16.0); Mean Corpuscular HGB CONC 30.8 g/dL (32.0-36.0); Mean Corpuscular Hemoglobin 19.4 pg (27.0-31.0); Mean Corpuscular Volume 62.9 fL (78.0-98.0); Mean Platelet Volume 7.3 fL (7.4-10.4); Platelet Count 181 thou/uL (130-400); RBC Distribution Width 20.3 % (11.5-14.5); Red Blood Cell (RBC) Count 5.07 mill/uL (4.20-5.40); White Blood Cell (WBC) Count 7.2 thou/uL (4.8-10.8)
[2021-04-10 09:10] LABS: INR-International Normal Ratio 2.2; Prothrombin Time 24.9 sec (12.0-14.7)
[2021-04-10 09:23] LABS: Bite Cells SLIGHT = 2-5 cells (100X) (0-1/hpf); Elliptocytes SLIGHT = 2-5 cells (100X) (0-1/hpf); Hypochromia MODERATE=16-30 cells (100X) (0-5/hpf); MDiff Complete? YES; Microcytosis MARKED = >30 cells (100X) (0-5/hpf); Ovalocytes MODERATE= 6-15 cells (100X) (0-1/hpf); Platelet Morphology Comment Appears Adequate; Polychromasia SLIGHT = 2-3 cells (100X) (0-2/hpf); Schistocytes SLIGHT = 2-5 cells (100X) (0-1/hpf); Target Cells SLIGHT = 2-5 cells (100X) (0-1/hpf); Tear Drops SLIGHT = 2-5 cells (100X) (0-1/hpf)
[2021-04-10 09:24] LABS: Anion Gap 13 mmol/L (10-20); BUN (Urea Nitrogen) 7 mg/dL (7.0-18.7); Calc. Creatinine Clearance 146 mL/min (70-130); Calcium 9.3 mg/dL (7.8-10.44); Carbon Dioxide 21 mmol/L (22-29); Chloride 106 mmol/L (98-107); Glucose 96 mg/dL (70-105); Potassium 3.6 mmol/L (3.5-5.1); Sodium 136 mmol/L (136-145)
[2021-04-10] MEDS: Enoxaparin Sodium 100 MG/ML SYRINGE SC SCH ×2 (09:38→20:35)
[2021-04-10] MEDS: Carvedilol 3.125 MG TAB PO SCH ×2 (09:39→17:04)
[2021-04-10] MEDS: Sacubitril 49 MG/Valsartan 51 MG TABLET PO SCH ×2 (09:39→20:37)
[2021-04-10] MEDS: Aspirin 81 mg Enteric Coated Tablet PO SCH (09:39)
[2021-04-10] MEDS: Warfarin Sodium 10 MG TAB PO SCH (17:04)
[2021-04-10] MEDS: Ondansetron PF 4 MG/2 ML Vial IVP PRN (22:15)
[2021-04-11 04:08] VITALS: BP 124/62; TEMP 98.1
[2021-04-11 05:00] LABS: #Eosinphils 0.5 thou/uL (0.0-0.7); #Lymphocytes 1.7 thou/uL (1.20-3.40); #Monocytes 0.8 thou/uL (0.11-0.59); #Neutrophils 3.3 thou/uL (1.40-6.50); %Basophils 0.8 % (0.0-1.0); %Eosinophils 7.2 % (0.0-10.0); %Lymphocytes 27.1 % (21.0-51.0); %Monocytes 12.9 % (0.0-10.0); %Neutrophils 52.1 % (42.0-75.0); Hemoglobin 8.5 g/dL (12.0-16.0); Mean Corpuscular HGB CONC 32.2 g/dL (32.0-36.0); Mean Corpuscular Hemoglobin 20.1 pg (27.0-31.0); Mean Corpuscular Volume 62.5 fL (78.0-98.0); Mean Platelet Volume 8.8 fL (7.4-10.4); Platelet Count 174 thou/uL (130-400); RBC Distribution Width 19.8 % (11.5-14.5); Red Blood Cell (RBC) Count 4.22 mill/uL (4.20-5.40); White Blood Cell (WBC) Count 6.3 thou/uL (4.8-10.8)
[2021-04-11 05:10] LABS: INR-International Normal Ratio 2.7; Prothrombin Time 29.2 sec (12.0-14.7)
[2021-04-11 05:21] LABS: Anion Gap 8 mmol/L (10-20); BUN (Urea Nitrogen) 10 mg/dL (7.0-18.7); Calc. Creatinine Clearance 150 mL/min (70-130); Calcium 8.7 mg/dL (7.8-10.44); Carbon Dioxide 25 mmol/L (22-29); Chloride 107 mmol/L (98-107); Glucose 99 mg/dL (70-105); Potassium 3.4 mmol/L (3.5-5.1); Sodium 137 mmol/L (136-145)
[2021-04-11] MEDS ORDERED: Carvedilol 6.25 MG TAB PO SCH (08:00)
[2021-04-11] MEDS: Aspirin 81 mg Enteric Coated Tablet PO SCH (10:48)
[2021-04-11] MEDS: Enoxaparin Sodium 100 MG/ML SYRINGE SC SCH (10:49)
[2021-04-11] MEDS: Sacubitril 49 MG/Valsartan 51 MG TABLET PO SCH (10:49)
[2021-04-11] MEDS: Carvedilol 3.125 MG TAB PO SCH (10:50)
[2021-04-11] MEDS ORDERED: Potassium Chloride 20 MEQ TAB PO SCH (11:30)
[2021-04-11] MEDS ORDERED: Warfarin Sodium 2.5 MG TAB PO SCH (17:00)
== END 2021-04-11 13:20 | disposition home or self-care (01) | DRG 417 ==
LOC: 2NO 23:59
PROVIDERS: ADMIT Internal Medicine; ATTEND Internal Medicine
PROC: 0FT44ZZ Resection of Gallbladder, Percutaneous Endoscopic Approach (ICD-10-PCS; principal; 2021-04-02)
PROC: 0FB14ZX Excision of Right Lobe Liver, Percutaneous Endoscopic Approach, Diagnostic (ICD-10-PCS; 2021-04-02)
PROC: BF0C1ZZ Plain Radiography of Hepatobiliary System, All using Low Osmolar Contrast (ICD-10-PCS; 2021-04-02)
PROC: 0DB68ZX Excision of Stomach, Via Natural or Artificial Opening Endoscopic, Diagnostic (ICD-10-PCS; 2021-04-05)
PROC: 0DB28ZX Excision of Middle Esophagus, Via Natural or Artificial Opening Endoscopic, Diagnostic (ICD-10-PCS; 2021-04-05)
DX: K80.12 Calculus of gallbladder with acute and chronic cholecystitis without obstruction (principal); I50.23 Acute on chronic systolic (congestive) heart failure; I48.20 Chronic atrial fibrillation, unspecified; N17.9 Acute kidney failure, unspecified; I42.9 Cardiomyopathy, unspecified; I11.0 Hypertensive heart disease with heart failure; E78.5 Hyperlipidemia, unspecified; I25.10 Atherosclerotic heart disease of native coronary artery without angina pectoris; E78.00 Pure hypercholesterolemia, unspecified; B96.81 Helicobacter pylori [H. pylori] as the cause of diseases classified elsewhere; E87.6 Hypokalemia; Z20.822 Contact with and (suspected) exposure to COVID-19; D64.9 Anemia, unspecified; K74.00 Hepatic fibrosis, unspecified; K31.7 Polyp of stomach and duodenum; E66.01 Morbid (severe) obesity due to excess calories; K29.50 Unspecified chronic gastritis without bleeding; Z91.14 Patient's other noncompliance with medication regimen; Z95.2 Presence of prosthetic heart valve; Z88.5 Allergy status to narcotic agent; Z88.0 Allergy status to penicillin; Z79.01 Long term (current) use of anticoagulants; Z79.899 Other long term (current) drug therapy; Z79.82 Long term (current) use of aspirin; Z95.1 Presence of aortocoronary bypass graft; Z68.36 Body mass index [BMI] 36.0-36.9, adult
CPT/HCPCS: 36415; 36416; 47532; 74176; 76705; 80048; 80053; 80074; 82105; 82390; 82728; 83516; 83540; 83550; 83690; 83880; 84484; 85014; 85018; 85025; 85049; 85520; 85610; 85730; 86038; 86225; 88304; 88305; 88307; 88313; 88342; 93005; 93010; 97139; J0690; J1100; J1170; J1610; J1642; J1644; J1650; J1940; J2250; J2370; J2405; J2704; J3010; J3480; J3490; J7030; J7050; Q0162; Q9961-U8; S0020; U0003; U0005

== ENCOUNTER 2021-04-26 09:26 | Inpatient (IN) | payer OTHER ==
[2021-04-26 10:26] LABS: INR-International Normal Ratio 1.9; Prothrombin Time 22.5 sec (12.0-14.7)
[2021-04-26 10:28] LABS: PTT 38.2 sec (22.9-36.1)
[2021-04-26] MEDS ORDERED: Ondansetron PF 4 MG/2 ML Vial ONE ×2 (10:28→19:38)
[2021-04-26] MEDS ORDERED: Cefepime 2 GM VIAL ONE (10:28)
[2021-04-26 10:34] LABS: #Basophils 0.1 thou/uL (0.0-0.2); #Eosinphils 0.2 thou/uL (0.0-0.7); #Lymphocytes 2.3 thou/uL (1.20-3.40); #Monocytes 0.8 thou/uL (0.11-0.59); #Neutrophils 3.4 thou/uL (1.40-6.50); %Basophils 1.5 % (0.0-1.0); %Eosinophils 2.3 % (0.0-10.0); %Lymphocytes 34.4 % (21.0-51.0); %Monocytes 11.3 % (0.0-10.0); %Neutrophils 50.6 % (42.0-75.0); Hemoglobin 10.3 g/dL (12.0-16.0); Mean Corpuscular HGB CONC 30.1 g/dL (32.0-36.0); Mean Corpuscular Hemoglobin 19.2 pg (27.0-31.0); Mean Corpuscular Volume 63.6 fL (78.0-98.0); Mean Platelet Volume 8.6 fL (7.4-10.4); Platelet Count 336 thou/uL (130-400); RBC Distribution Width 25.2 % (11.5-14.5); Red Blood Cell (RBC) Count 5.39 mill/uL (4.20-5.40); White Blood Cell (WBC) Count 6.6 thou/uL (4.8-10.8)
[2021-04-26] MEDS ORDERED: Vancomycin HCl 1.5 GM in Sodium Chloride 0.9% 250 ML 300 ML IVPB SCH (11:00)
[2021-04-26] MEDS ORDERED: Metoprolol Tartrate 5 MG/5 ML VIAL ONE ×2 (11:09→15:56)
[2021-04-26 11:20] LABS: Burr Cells SLIGHT = 2-5 cells (100X) (0-1/hpf); Elliptocytes SLIGHT = 2-5 cells (100X) (0-1/hpf); Hypochromia MODERATE=16-30 cells (100X) (0-5/hpf); MDiff Complete? YES; Microcytosis MODERATE=15-30 cells (100X) (0-5/hpf); Ovalocytes MODERATE= 6-15 cells (100X) (0-1/hpf); Platelet Morphology Comment Appears Adequate; Polychromasia MODERATE = 3-4 cells (100X) (0-2/hpf); Schistocytes SLIGHT = 2-5 cells (100X) (0-1/hpf); Tear Drops SLIGHT = 2-5 cells (100X) (0-1/hpf)
[2021-04-26 11:46] LABS: ALT (SGPT) 10 U/L (8-55); AST (SGOT) 22 U/L (5-34); Albumin 3.5 g/dL (3.5-5.0); Alkaline Phosphatase 121 U/L (40-110); Anion Gap 14 mmol/L (10-20); BUN (Urea Nitrogen) 15 mg/dL (7.0-18.7); Bilirubin, Total 3.9 mg/dL (0.2-1.2); Calc. Creatinine Clearance 0 mL/min (70-130); Calcium 8.9 mg/dL (7.8-10.44); Carbon Dioxide 20 mmol/L (22-29); Chloride 110 mmol/L (98-107); Globulin 3.7 g/dL (2.4-3.5); Glucose 101 mg/dL (70-105); Potassium 3.4 mmol/L (3.5-5.1); Protein, Total 7.2 g/dL (6.0-8.3); Sodium 141 mmol/L (136-145)
[2021-04-26 13:10] LABS: Lactic Acid 2.3 mmol/L (0.5-2.2)
[2021-04-26] MEDS ORDERED: Furosemide 20 MG/2 ML VIAL ONE (13:18)
[2021-04-26] MEDS ORDERED: Potassium Chloride 20 MEQ TAB ONE (13:18)
[2021-04-26] MEDS ORDERED: Heparin 25,000 units/D5W 500 ML ONE (14:26)
[2021-04-26] MEDS ORDERED: Heparin 10,000 UNITS/ 10 ML VIAL ONE (14:54)
[2021-04-26] MEDS ORDERED: hydrALAZINE 20 MG/ML VIAL SLOW IVP PRN (16:42)
[2021-04-26] MEDS ORDERED: Ondansetron PF 4 MG/2 ML Vial IVP PRN (16:44)
[2021-04-26] MEDS ORDERED: Acetaminophen 325 MG TAB PO PRN (16:44)
[2021-04-26] MEDS ORDERED: Heparin 10,000 UNITS/ 10 ML VIAL SLOW IVP SCH (16:45)
[2021-04-26] MEDS ORDERED: Heparin 25,000 units/D5W 500 ML IVPB SCH (16:45)
[2021-04-26 17:29] LABS: PTT 173.8 sec (22.9-36.1)
[2021-04-26 18:00] LABS: Troponin I 0.017 ng/mL (< 0.028)
[2021-04-26] MEDS ORDERED: Warfarin Sodium 2.5 MG TAB PO SCH (18:00)
[2021-04-26] MEDS ORDERED: Warfarin Sodium 10 MG TAB PO SCH (18:00)
[2021-04-26 18:34] LABS: Hemoglobin 10.4 g/dL (12.0-16.0); Platelet Count 297 thou/uL (130-400)
[2021-04-26] MEDS ORDERED: Diltiazem 125 MG/25 ML ONE (19:16)
[2021-04-26] MEDS: Diltiazem 125 MG in Sodium Chloride 0.9% 100 ML IVPB SCH ×2 (19:27→21:44)
[2021-04-26 20:39] LABS: Troponin I 0.017 ng/mL (< 0.028)
[2021-04-26 22:21] VITALS: BMI 34.7
[2021-04-27 05:55] LABS: Anion Gap 17 mmol/L (10-20); BUN (Urea Nitrogen) 15 mg/dL (7.0-18.7); Calc. Creatinine Clearance 124 mL/min (70-130); Carbon Dioxide 16 mmol/L (22-29); Chloride 112 mmol/L (98-107); Glucose 85 mg/dL (70-105); Potassium 3.5 mmol/L (3.5-5.1); Sodium 141 mmol/L (136-145)
[2021-04-27] MEDS ORDERED: Carvedilol 6.25 MG TAB PO SCH ×2 (10:48→12:45)
[2021-04-27] MEDS ORDERED: Sacubitril 49 MG/Valsartan 51 MG TABLET PO SCH ×2 (10:49→12:30)
[2021-04-27] MEDS ORDERED: Pantoprazole 40 MG VIAL IVP SCH (11:15)
[2021-04-27 12:12] LABS: SARS-CoV-2 PCR by NAA Not Detected (NotDetected)
[2021-04-27] MEDS: metroNIDAZOLE 500 MG TAB PO SCH ×4 (12:24→23:52)
[2021-04-27] MEDS: Scopolamine 1.5 mg/72 hour Patch TD SCH (12:24)
[2021-04-27] MEDS ORDERED: Warfarin Sodium 10 MG TAB PO SCH (17:00)
[2021-04-27] MEDS ORDERED: Warfarin Sodium 2.5 MG TAB PO SCH (17:00)
[2021-04-27] MEDS: Carvedilol 6.25 MG TAB PO SCH (18:16)
[2021-04-27] MEDS: Clarithromycin 500 MG TAB PO SCH (21:26)
[2021-04-27] MEDS: Sacubitril 49 MG/Valsartan 51 MG TABLET PO SCH (21:28)
[2021-04-28] MEDS ORDERED: metroNIDAZOLE 500 MG in Premix Bag 1 BAG IVPB SCH (06:00)
[2021-04-28 07:30] LABS: INR-International Normal Ratio 3.2; Prothrombin Time 33.4 sec (12.0-14.7)
[2021-04-28 07:42] LABS: Anion Gap 9 mmol/L (10-20); BUN (Urea Nitrogen) 13 mg/dL (7.0-18.7); Calc. Creatinine Clearance 139 mL/min (70-130); Calcium 8.1 mg/dL (7.8-10.44); Carbon Dioxide 23 mmol/L (22-29); Chloride 110 mmol/L (98-107); Glucose 102 mg/dL (70-105); Magnesium 1.5 mg/dL (1.6-2.6); Potassium 3.1 mmol/L (3.5-5.1); Sodium 139 mmol/L (136-145)
[2021-04-28 08:11] LABS: Band 2 % (5-11); Eosinophils 6 % (0-10); Hemoglobin 9.9 g/dL (12.0-16.0); Hypochromia SLIGHT = 6-15 cells (100X) (0-5/hpf); Lymphocytes 37 % (21-51); MDiff Complete? YES; Mean Corpuscular HGB CONC 29.6 g/dL (32.0-36.0); Mean Corpuscular Volume 64.4 fL (78.0-98.0); Mean Platelet Volume 6.7 fL (7.4-10.4); Monocytes 6 % (0-10); Neutrophil 49 % (42-75); Platelet Count 274 thou/uL (130-400); RBC Distribution Width 23.4 % (11.5-14.5); White Blood Cell (WBC) Count 5.9 thou/uL (4.8-10.8)
[2021-04-28] MEDS: Carvedilol 6.25 MG TAB PO SCH ×2 (08:41→16:56)
[2021-04-28] MEDS: metroNIDAZOLE 500 MG TAB PO SCH ×2 (08:43→08:50)
[2021-04-28] MEDS: Aspirin 81 mg Enteric Coated Tablet PO SCH (08:43)
[2021-04-28] MEDS: Sacubitril 49 MG/Valsartan 51 MG TABLET PO SCH ×2 (08:44→22:19)
[2021-04-28] MEDS: Clarithromycin 500 MG TAB PO SCH (08:44)
[2021-04-28 17:10] LABS: Hemoglobin 11.1 g/dL (12.0-16.0); Platelet Count 300 thou/uL (130-400)
[2021-04-29] MEDS: Sacubitril 49 MG/Valsartan 51 MG TABLET PO SCH ×2 (09:38→21:33)
[2021-04-29] MEDS: Carvedilol 6.25 MG TAB PO SCH ×2 (09:38→18:08)
[2021-04-29] MEDS: Aspirin 81 mg Enteric Coated Tablet PO SCH (09:39)
[2021-04-29 13:17] LABS: Anion Gap 14 mmol/L (10-20); BUN (Urea Nitrogen) 12 mg/dL (7.0-18.7); Calc. Creatinine Clearance 135 mL/min (70-130); Calcium 8.4 mg/dL (7.8-10.44); Carbon Dioxide 20 mmol/L (22-29); Chloride 108 mmol/L (98-107); Glucose 108 mg/dL (70-105); Potassium 3.3 mmol/L (3.5-5.1); Sodium 139 mmol/L (136-145)
[2021-04-29 13:19] LABS: #Eosinphils 0.9 thou/uL (0.0-0.7); #Monocytes 0.8 thou/uL (0.11-0.59); #Neutrophils 2.4 thou/uL (1.40-6.50); %Basophils 0.4 % (0.0-1.0); %Eosinophils 14.7 % (0.0-10.0); %Lymphocytes 32.7 % (21.0-51.0); %Monocytes 13.6 % (0.0-10.0); %Neutrophils 38.6 % (42.0-75.0); Anisocytosis SLIGHT = 6-15 cells (100X) (0-5/hpf); Bite Cells SLIGHT = 2-5 cells (100X) (0-1/hpf); Hemoglobin 11.2 g/dL (12.0-16.0); Hypochromia SLIGHT = 6-15 cells (100X) (0-5/hpf); MDiff Complete? YES; Mean Corpuscular HGB CONC 30.6 g/dL (32.0-36.0); Mean Corpuscular Hemoglobin 19.6 pg (27.0-31.0); Mean Corpuscular Volume 64.1 fL (78.0-98.0); Mean Platelet Volume 7.2 fL (7.4-10.4); Microcytosis SLIGHT = 6-15 cells (100X) (0-5/hpf); Ovalocytes SLIGHT = 2-5 cells (100X) (0-1/hpf); Platelet Count 283 thou/uL (130-400); Platelet Morphology Comment Appears Adequate; Polychromasia SLIGHT = 2-3 cells (100X) (0-2/hpf); RBC Distribution Width 22.9 % (11.5-14.5); Red Blood Cell (RBC) Count 5.73 mill/uL (4.20-5.40); White Blood Cell (WBC) Count 6.1 thou/uL (4.8-10.8)
[2021-04-29 13:27] LABS: INR-International Normal Ratio 2.8; Prothrombin Time 29.8 sec (12.0-14.7)
[2021-04-29] MEDS ORDERED: Heparin 25,000 units/D5W 500 ML IVPB SCH (13:45)
[2021-04-29] MEDS ORDERED: Heparin 10,000 UNITS/ 10 ML VIAL SLOW IVP SCH (13:45)
[2021-04-29 14:39] LABS: Hemoglobin 11.3 g/dL (12.0-16.0); Platelet Count 278 thou/uL (130-400)
[2021-04-30 06:01] LABS: Hemoglobin 9.2 g/dL (12.0-16.0); Mean Corpuscular Hemoglobin 19.4 pg (27.0-31.0); Mean Corpuscular Volume 62.4 fL (78.0-98.0); Mean Platelet Volume 6.7 fL (7.4-10.4); Platelet Count 216 thou/uL (130-400); RBC Distribution Width 22.2 % (11.5-14.5); Red Blood Cell (RBC) Count 4.74 mill/uL (4.20-5.40); White Blood Cell (WBC) Count 5.4 thou/uL (4.8-10.8)
[2021-04-30 06:08] LABS: INR-International Normal Ratio 2.6; Prothrombin Time 28.7 sec (12.0-14.7)
[2021-04-30 06:22] LABS: Anion Gap 9 mmol/L (10-20); BUN (Urea Nitrogen) 12 mg/dL (7.0-18.7); Calc. Creatinine Clearance 147 mL/min (70-130); Carbon Dioxide 24 mmol/L (22-29); Chloride 107 mmol/L (98-107); Glucose 88 mg/dL (70-105); Potassium 3.2 mmol/L (3.5-5.1); Sodium 137 mmol/L (136-145)
[2021-04-30 06:45] LABS: Anisocytosis MODERATE=16-30 cells (100X) (0-5/hpf); Elliptocytes SLIGHT = 2-5 cells (100X) (0-1/hpf); Eosinophils 13 % (0-10); Hypochromia SLIGHT = 6-15 cells (100X) (0-5/hpf); Lymphocytes 47 % (21-51); MDiff Complete? YES; Monocytes 1 % (0-10); Neutrophil 39 % (42-75)
[2021-04-30] MEDS ORDERED: Carvedilol 6.25 MG TAB PO SCH (08:00)
[2021-04-30 08:23] VITALS: TEMP 98.1
[2021-04-30] MEDS: Sacubitril 49 MG/Valsartan 51 MG TABLET PO SCH (08:59)
[2021-04-30] MEDS: Aspirin 81 mg Enteric Coated Tablet PO SCH (08:59)
[2021-04-30] MEDS: Carvedilol 6.25 MG TAB PO SCH (09:01)
[2021-04-30 11:33] VITALS: BP 106/74
[2021-04-30] MEDS: Scopolamine 1.5 mg/72 hour Patch TD SCH (12:17)
[2021-04-30] MEDS ORDERED: Potassium Chloride 20 MEQ TAB PO SCH (13:15)
[2021-04-30 13:38] LABS: PTT 161.3 sec (22.9-36.1)
[2021-05-02 12:17] LABS: Hemoglobin A2 5.5 % (1.8-3.2); Hemoglobin F 0.3 % (0.0-2.0); Interpretation Note: (.)
== END 2021-04-30 16:25 | disposition left against medical advice (07) | DRG 310 ==
LOC: ERS 09:26 → ERHOLD 14:26 → 2SE 21:18 → 2SW 04-27 12:47
PROVIDERS: ADMIT Internal Medicine; ATTEND Internal Medicine
DX: I48.91 Unspecified atrial fibrillation (principal); Z20.822 Contact with and (suspected) exposure to COVID-19; B96.81 Helicobacter pylori [H. pylori] as the cause of diseases classified elsewhere; I10 Essential (primary) hypertension; K29.70 Gastritis, unspecified, without bleeding; E78.5 Hyperlipidemia, unspecified; I25.10 Atherosclerotic heart disease of native coronary artery without angina pectoris; I16.0 Hypertensive urgency; E66.01 Morbid (severe) obesity due to excess calories; I42.9 Cardiomyopathy, unspecified; D50.9 Iron deficiency anemia, unspecified; Z95.1 Presence of aortocoronary bypass graft; Z90.49 Acquired absence of other specified parts of digestive tract; Z88.0 Allergy status to penicillin; Z88.5 Allergy status to narcotic agent; Z79.82 Long term (current) use of aspirin; Z79.01 Long term (current) use of anticoagulants; Z95.2 Presence of prosthetic heart valve; Z68.35 Body mass index [BMI] 35.0-35.9, adult
CPT/HCPCS: 36415; 71045; 71275; 74177; 80048; 80053; 83021; 83605; 83690; 83735; 83880; 84484; 85025; 85610; 85730; 87040; 93005; 94760; C9113; J0692; J1644; J1940; J2405; J3370; J3490; J7050; U0003; U0005

== ENCOUNTER 2021-08-24 11:26 | Emergency (ER) | payer OTHER ==
[2021-08-24] MEDS ORDERED: Ondansetron PF 4 MG/2 ML Vial ONE (12:15)
[2021-08-24] MEDS ORDERED: Magnesium 2 GM/50 ML BAG (IN WATER) ONE (12:15)
[2021-08-24] MEDS ORDERED: Sterile Water 10 ML ONE (12:18)
[2021-08-24] MEDS ORDERED: Fentanyl 100 MCG/2 ML VIAL ONE (12:18)
[2021-08-24] MEDS ORDERED: Pantoprazole 40 MG VIAL ONE (12:18)
[2021-08-24] MEDS ORDERED: Iopamidol-370 76% 500 ML 1 ML ONE (12:36)
[2021-08-24 12:53] LABS: #Basophils 0.1 thou/uL (0.0-0.2); #Eosinphils 0.1 thou/uL (0.0-0.7); #Lymphocytes 1.7 thou/uL (1.20-3.40); #Monocytes 0.7 thou/uL (0.11-0.59); #Neutrophils 3.7 thou/uL (1.40-6.50); %Basophils 0.9 % (0.0-1.0); %Eosinophils 1.4 % (0.0-10.0); %Lymphocytes 27.5 % (21.0-51.0); %Monocytes 10.8 % (0.0-10.0); %Neutrophils 59.3 % (42.0-75.0); Hemoglobin 10.6 g/dL (12.0-16.0); Mean Corpuscular HGB CONC 29.2 g/dL (32.0-36.0); Mean Corpuscular Hemoglobin 19.7 pg (27.0-31.0); Mean Corpuscular Volume 67.5 fL (78.0-98.0); Mean Platelet Volume 18.3 fL (7.4-10.4); Platelet Count 188 thou/uL (130-400); RBC Distribution Width 26.1 % (11.5-14.5); Red Blood Cell (RBC) Count 5.39 mill/uL (4.20-5.40); White Blood Cell (WBC) Count 6.2 thou/uL (4.8-10.8)
[2021-08-24 13:19] LABS: Anisocytosis MODERATE=16-30 cells (100X) (0-5/hpf); Elliptocytes SLIGHT = 2-5 cells (100X) (0-1/hpf); Hypochromia MODERATE=16-30 cells (100X) (0-5/hpf); Large Platelets SLIGHT; MDiff Complete? YES; Microcytosis SLIGHT = 6-15 cells (100X) (0-5/hpf); Ovalocytes SLIGHT = 2-5 cells (100X) (0-1/hpf); Platelet Morphology Comment Appears Adequate; Poikilocytosis MODERATE=16-30 cells (100X) (0-5/hpf); Polychromasia SLIGHT = 2-3 cells (100X) (0-2/hpf); Reflex for Review?? YES; Schistocytes SLIGHT = 2-5 cells (100X) (0-1/hpf); Spherocytes SLIGHT = 1-5 cells (100X) (None Seen); Target Cells MODERATE= 6-15 cells (100X) (0-1/hpf); Tear Drops SLIGHT = 2-5 cells (100X) (0-1/hpf)
[2021-08-24 14:53] LABS: ALT (SGPT) 14 U/L (8-55); AST (SGOT) 42 U/L (5-34); Albumin 3.9 g/dL (3.5-5.0); Alkaline Phosphatase 129 U/L (40-110); Anion Gap 17 mmol/L (10-20); BUN (Urea Nitrogen) 13 mg/dL (7.0-18.7); Bilirubin, Total 8.1 mg/dL (0.2-1.2); CK (CPK) 60 U/L (29-168); Calc. Creatinine Clearance 0 mL/min (70-130); Calcium 8.8 mg/dL (7.8-10.44); Carbon Dioxide 21 mmol/L (22-29); Chloride 106 mmol/L (98-107); Globulin 3.8 g/dL (2.4-3.5); Glucose 100 mg/dL (70-105); Lipase 23 U/L (8-78); Potassium 3.8 mmol/L (3.5-5.1); Protein, Total 7.7 g/dL (6.0-8.3); Sodium 140 mmol/L (136-145)
== END 2021-08-24 15:36 | disposition home or self-care (01) ==
LOC: ERS 11:26
DX: K20.90 Esophagitis, unspecified without bleeding (principal); I50.9 Heart failure, unspecified; I11.0 Hypertensive heart disease with heart failure; I48.91 Unspecified atrial fibrillation; Z86.73 Personal history of transient ischemic attack (TIA), and cerebral infarction without residual deficits
CPT/HCPCS: 36415; 71045; 74177; 80053; 82550; 83690; 83880; 84484; 85025; 85060; 93005; 96365; 96375; C9113; J2405; J3010; J3475; Q9967